=== PATIENT | male | born 1940 | race Caucasian/White ===

== ENCOUNTER 2017-10-23 11:22 | Inpatient (IN) | payer BC, MEDICARE ==
[2017-10-23 12:29] LABS: URINE BILIRUBIN NEGATIVE (NEGATIVE); URINE BLOOD 2+ (NEGATIVE); URINE CLARITY Hazy (Clear); URINE COLOR Yellow (YELLOW); URINE GLUCOSE (UA) 1+ mg/dL (Normal); URINE HYALINE CAST 0-2 /lpf (0-2); URINE LEUKOCYTE ESTERASE 3+ Leu/uL (Negative); URINE NITRATE NEGATIVE (NEGATIVE); URINE PROTEIN 2+ mg/dL (NEGATIVE); URINE UROBILINOGEN NORMAL mg/dL (0.2-1.0)
[2017-10-23 12:34] LABS: URINE BACTERIA MANY (<OCC)
[2017-10-23 13:42] LABS: BASO # 0.1 K/uL (0.0-0.2); BASO % 0.4 % (0.0-2.0); EOS % 0.1 % (0.0-4.0); HEMOGLOBIN 13.6 g/dL (12.0-18.0); LYMPH # 0.7 K/uL (1.0-4.3); LYMPH % 4.7 % (20.0-40.0); MEAN CELL VOLUME 90.3 fL (80.0-94.0); MEAN CORPUSCULAR HEMOGLOBIN 31.2 pg (27.0-31.0); MEAN CORPUSCULAR HGB CONC 34.5 g/dL (33.0-37.0); MEAN PLATELET VOLUME 9.4 fL (7.2-11.7); MONO # 1.8 K/uL (0.0-0.8); MONO % 11.2 % (0.0-10.0); NEUT % 83.6 % (50.0-75.0); PLATELET COUNT 191 K/uL (130-400); RBC 4.38 Mil/uL (4.40-5.90); RED CELL DISTRIBUTION WIDTH 12.7 % (11.5-14.5); WHITE BLOOD COUNT 15.6 K/uL (4.8-10.8)
[2017-10-23 14:15] LABS: ALB/GLOB RATIO 0.8 (1.0-2.1); ALBUMIN 3.6 g/dL (3.5-5.0); CALCIUM 8.1 mg/dl (8.6-10.4); MAGNESIUM 2.1 mg/dL (1.6-2.3)
[2017-10-23] MEDS ORDERED: Lactated Ringer's 1,000 ML IV STA (14:16)
[2017-10-23 14:17] LABS: BANDS 2 % (0-2); LYMPHOCYTE 4 % (20-40); MONOCYTE 11 % (0-10); NEUTROPHIL 83 % (50-75); TOTAL CELLS COUNTED 100
[2017-10-23 14:18] LABS: ANISOCYTOSIS SLIGHT; PLATELET ESTIMATE NORMAL (NORMAL)
[2017-10-23 14:19] LABS: LARGE PLATELETS PRESENT; POLYCHROMIC SLIGHT
[2017-10-23] MEDS ORDERED: cefTRIAXone IV 1 gm in Dextros 50 ML IVPB ONE (14:35)
[2017-10-23] MEDS ORDERED: Sodium Chloride 0.9% 1,000 ML ONE (14:35)
[2017-10-23] MEDS: Sodium Chloride 0.9% 1,000 ML IV SCH ×2 (14:38→22:59)
--- NOTE | 2017-10-23 14:42 | CT ---
PROCEDURE: CT Abdomen and Pelvis without intravenous contrast HISTORY: flank pain with dysuria COMPARISON: None. TECHNIQUE: Axial and reformatted coronal and sagittal CT images of the abdomen and pelvis were obtained without IV or oral contrast administration.. Contrast Dose: 0 Radiation dose: Total exam DLP = 538.00 mGy-cm. This CT exam was performed using one or more of the following dose reduction techniques: Automated exposure control, adjustment of the mA and/or kV according to patient size, and/or use of iterative reconstruction technique. FINDINGS: LOWER THORAX: No evidence of acute pathology. LIVER: Unremarkable. No gross lesion or ductal dilatation. GALLBLADDER AND BILE DUCTS: Unremarkable. PANCREAS: Unremarkable. No gross lesion or ductal dilatation. SPLEEN: Unremarkable. ADRENALS: Unremarkable. No mass. KIDNEYS AND URETERS: There are nonspecific [id number] bilateral perinephric stranding seen slightly more on the left. The possibility of infectious process is not totally excluded. There is no evidence of nephrolithiasis or hydronephrosis. Low-attenuation cyst are noted at both kidneys larger on the left. The left renal cyst measures 4.2 centimeter in the largest transverse diameter. VASCULATURE: Unremarkable. No aortic aneurysm. BOWEL: Unremarkable. No obstruction. No gross mural thickening. Scattered colonic diverticulosis are seen without evidence of diverticulitis. APPENDIX: Unremarkable. Normal appendix. PERITONEUM: Unremarkable. No free fluid. No free air. LYMPH NODES: Unremarkable. No enlarged lymph nodes. BLADDER: There is Ghosh catheter in the bladder. There is moderate to severe diffuse bladder wall thickening. There is 3.2 centimeter diverticulum at the right aspect of the bladder contains fluid and air. REPRODUCTIVE: The prostate it is moderately enlarged. BONES: Advanced degenerative changes at the lower spine are noted PE OTHER FINDINGS: None. IMPRESSION: No evidence of nephrolithiasis or significant hydronephrosis. Ndpv-po-viohotxv nonspecific bilateral perinephric stranding more prominent on the left side. The possibility of pyelonephritis is not totally excluded. Moderate diffuse bladder wall thickening. 3.2 centimeter right posterior bladder diverticulum. Moderately enlarged prostate.
--- NOTE | 2017-10-23 15:52 | C.PDOC ---
History Of Present Illness Patient is a 76 y/o male, with a Hx of prostate enlargement, who presents to the ED with a complaint of painful urination and increased frequency. Patient reports little urine output when urinating. Patient admits to not seeing a PMD in many years; denies fever, nausea/vomiting, or abdominal pain. No other physical complaints at this time. Time Seen by Provider: 10/23/17 12:32 Chief Complaint (Nursing): Male Genitourinary History Per: Patient History/Exam Limitations: no limitations Current Symptoms Are (Timing): Still Present Associated Symptoms: Urinary Symptoms (frequency) Recent travel outside of the [place]: No Past Medical History Reviewed: Historical Data, Nursing Documentation, Vital Signs Vital Signs: Last Vital Signs Temp 98.7 F 10/23/17 17:54 Pulse 106 H 10/23/17 17:20 Resp 20 10/23/17 18:10 BP 153/88 H 10/23/17 17:20 Pulse Ox 96 10/23/17 17:20 - Medical History PMH: No Chronic Diseases Surgical History: No Surg Hx - [facility] Procedures DX ULTRASOUND NEC (01/10/14) Family History: States: No Known Family Hx - Social History Hx Alcohol Use: No Hx Substance Use: No - Immunization History Hx Tetanus Toxoid Vaccination: No Hx Influenza Vaccination: No Hx Pneumococcal Vaccination: No Review Of Systems Constitutional: Negative for: Fever Gastrointestinal: Negative for: Nausea, Vomiting, Abdominal Pain Genitourinary: Positive for: Dysuria, Frequency Physical Exam - Physical Exam Appears: Well, Non-toxic, No Acute Distress Skin: Normal Color, Warm, Dry Head: Atraumatic, Normacephalic Oral Mucosa: Moist Lymphatic: Deferred Chest: Symmetrical Cardiovascular: Rhythm Regular, No Murmur Respiratory: Normal Breath Sounds, No Rales, No Rhonchi, No Wheezing Gastrointestinal/Abdominal: Soft, No Tenderness Neurological/Psych: Oriented x3, Normal Speech, Normal Cognition ED Course And Treatment - Laboratory Results Result Diagrams: 10/23/17 13:36 10/23/17 13:36 O2 Sat by Pulse Oximetry: 97 (room air) Pulse Ox Interpretation: Normal - CT Scan/US A/P Other Rad Studies (CT/US): Interpreted By Me, Read By Radiologist CT/US Interpretation: IMPRESSION: No evidence of nephrolithiasis or significant hydronephrosis. Fuqn-ii-butptkts nonspecific bilateral perinephric stranding more prominent on the left side. The possibility of pyelonephritis is not totally excluded. Moderate diffuse bladder wall thickening. 3.2 centimeter right posterior bladder diverticulum. Moderately enlarged prostate. Progress Note: EKG, urine culture, and blood work ordered. IV fluids administered. - Physician Consult Information Time Consulting Physician Contacted: 14:30 Physician Contacted: Darshana Jeter Outcome Of Conversation: Agrees to admission of patient Disposition - Disposition Disposition: HOSPITALIZED Disposition Time: 14:40 Condition: STABLE - Clinical Impression Clinical Impression: Renal failure, Pyelonephritis - Scribe Statement The provider has reviewed the documentation as recorded by the Scribe Joanie Ang All medical record entries made by the Scribe were at my direction and personally dictated by me. I have reviewed the chart and agree that the record accurately reflects my personal performance of the history, physical exam, medical decision making, and the department course for this patient. I have also personally directed, reviewed, and agree with the discharge instructions and disposition.
--- NOTE | 2017-10-23 18:24 | CP.PCM.HP ---
Past Patient History - Past Medical History & Family History Past Medical History?: Yes - Past Social History Smoking Status: Never Smoked - CARDIAC Hx Cardiac Disorders: No - PULMONARY Hx Respiratory Disorders: No - NEUROLOGICAL Hx Neurological Disorder: No - HEENT Hx HEENT Problems: No - RENAL Hx Chronic Kidney Disease: No - ENDOCRINE/METABOLIC Hx Endocrine Disorders: No - HEMATOLOGICAL/ONCOLOGICAL Hx Blood Disorders: No - INTEGUMENTARY Hx Dermatological Problems: No - MUSCULOSKELETAL/RHEUMATOLOGICAL Hx Falls: No - GASTROINTESTINAL Hx Gastrointestinal Disorders: No - GENITOURINARY/GYNECOLOGICAL Hx Genitourinary Disorders: Yes Other/Comment: "urinary problems" - PSYCHIATRIC Hx Substance Use: No - SURGICAL HISTORY Hx Surgeries: Yes Other/Comment: "urinary biopsy" - ANESTHESIA Hx Anesthesia: Yes Hx Anesthesia Reactions: No Hx Malignant Hyperthermia: No Has any member of the family had a problem w/ anesthesia?: No Meds Allergies/Adverse Reactions: Allergies Allergy/AdvReac Type Severity Reaction Status Date / Time No Known Allergies Allergy Verified 10/23/17 11:30 Results - Vital Signs Recent Vital Signs: Last Vital Signs Temp 98.7 F 10/23/17 17:54 Pulse 106 H 10/23/17 17:20 Resp 20 10/23/17 18:10 BP 153/88 H 10/23/17 17:20 Pulse Ox 96 10/23/17 17:20 - Labs Result Diagrams: 10/23/17 13:36 10/23/17 13:36 Labs: Laboratory Results - last 24 hr 10/23/17 10/23/17 10/23/17 12:02 13:36 13:36 WBC 15.6 H RBC 4.38 L Hgb 13.6 Hct 39.6 MCV 90.3 MCH 31.2 H MCHC 34.5 RDW 12.7 Plt Count 191 MPV 9.4 Neut % (Auto) 83.6 H Lymph % (Auto) 4.7 L [place] % (Auto) 11.2 H Eos % (Auto) 0.1 Baso % (Auto) 0.4 Neut # 13.0 H Lymph # 0.7 L [place] # 1.8 H Eos # 0.0 Baso # 0.1 Neutrophils % (Manual) 83 H Band Neutrophils % 2 Lymphocytes % (Manual) 4 L Monocytes % (Manual) 11 H Platelet Estimate Normal Large Platelets Present Polychromasia Slight Anisocytosis (manual) Slight Sodium 127 L Potassium 4.7 Chloride 93 L Carbon Dioxide 23 Anion Gap 16 BUN 63 H Creatinine 1.8 H Est GFR ( Amer) 45 Est GFR (Non-Af Amer) 37 Random Glucose 234 H Calcium 8.1 L Phosphorus 3.9 Magnesium 2.1 Total Bilirubin 0.9 AST 25 ALT 30 Alkaline Phosphatase 91 Total Protein 8.1 Albumin 3.6 Globulin 4.5 H Albumin/Globulin Ratio 0.8 L Lipase 674 H Urine Color Yellow Urine Clarity Hazy Urine pH 5.0 Ur Specific [place] 1.013 Urine Protein 2+ H Urine Glucose (UA) 1+ H Urine Ketones Trace Urine Blood 2+ H Urine Nitrate Negative Urine Bilirubin Negative Urine Urobilinogen Normal Ur Leukocyte Esterase 3+ H Urine WBC (Auto) 300 H Urine RBC (Auto) 5 H Urine Bacteria Many H Hyaline Casts 0-2
[2017-10-24] MEDS: Piperacill/Tazo 3.375gm in Dex 3.375 GM/50 ML BAG IVPB SCH ×3 (00:21→16:00)
[2017-10-24] MEDS: Sodium Chloride 0.9% 1,000 ML IV SCH ×3 (06:49→22:30)
[2017-10-24] MEDS: Enoxaparin 40 mg Syringe SC SCH (10:57)
[2017-10-24] MEDS: Pantoprazole 40 mg EC Tab PO SCH (10:57)
[2017-10-24] MEDS ORDERED: Multiple Vitamins Tab PO SCH (13:45)
--- NOTE | 2017-10-24 16:54 | CP.PCM.CON ---
History of Present Illness - History of Present Illness History of Present Illness: 76 year old male with PMHx pylonephritis seen at bedside complaining of electrical sensations that shoot from his b/l digits proximally up his leg x 5 years. Patient states that the sensations have come and gone over that time period. He denies a hx of diabetes, exposure to heavy metals or alcohol abuse. He has never sought treatment for the issue. Patient denies any further pedal complaints at this time. He denies N/V/F/C/CP/SOB/posterior calf pain. Meds: Denies All: NKDA PSH: Denies FH: Unremarkable SH: Denies tobacco use, ETOH use, illicit drug use Review of Systems - Review of Systems Review of Systems: ROS as per HPI. All other systems reviewed and found to be negative Past Patient History - Past Medical History & Family History Past Medical History?: Yes - Past Social History Smoking Status: Never Smoked - CARDIAC Hx Cardiac Disorders: No - PULMONARY Hx Respiratory Disorders: No - NEUROLOGICAL Hx Neurological Disorder: No - HEENT Hx HEENT Problems: No - RENAL Hx Chronic Kidney Disease: No - ENDOCRINE/METABOLIC Hx Endocrine Disorders: No - HEMATOLOGICAL/ONCOLOGICAL Hx Blood Disorders: No - INTEGUMENTARY Hx Dermatological Problems: No - MUSCULOSKELETAL/RHEUMATOLOGICAL Hx Falls: No - GASTROINTESTINAL Hx Gastrointestinal Disorders: No - GENITOURINARY/GYNECOLOGICAL Hx Genitourinary Disorders: Yes Other/Comment: "urinary problems" - PSYCHIATRIC Hx Substance Use: No - SURGICAL HISTORY Hx Surgeries: Yes Other/Comment: "urinary biopsy" - ANESTHESIA Hx Anesthesia: Yes Hx Anesthesia Reactions: No Hx Malignant Hyperthermia: No Has any member of the family had a problem w/ anesthesia?: No Meds Allergies/Adverse Reactions: Allergies Allergy/AdvReac Type Severity Reaction Status Date / Time No Known Allergies Allergy Verified 10/23/17 11:30 - Medications Medications: Current Medications Enoxaparin Sodium (Lovenox) 40 mg SC DAILY REPLACED BY [facility] Last Admin: 10/24/17 10:57 Dose: 40 mg Sodium Chloride (Sodium Chloride 0.9%) 1,000 mls @ 125 mls/hr IV .Q8H REPLACED BY [facility] Last Admin: 10/24/17 13:51 Dose: Not Given Piperacillin Sod/Tazobactam Sod (Zosyn 3.375 Gm Iv Premix) 3.375 gm in 50 mls @ 100 mls/hr IVPB Q8H REPLACED BY [facility] Last Admin: 10/24/17 09:00 Dose: 100 mls/hr Pantoprazole Sodium (Protonix Ec Tab) 40 mg PO DAILY REPLACED BY [facility] Last Admin: 10/24/17 10:57 Dose: 40 mg Pneumococcal Polyvalent Vaccine (Pneumovax 23 Vaccine) 0.5 ml IM .ONCE ONE Stop: 10/26/17 10:01 Physical Exam - Constitutional Appears: Well, Non-toxic, No Acute Distress - Extremities Exam Additional comments: LE focused exam: Vasc: DP/PT pulses palpable 2.4 b/l. Skin temperature warm to warm from proximal to distal. CFT < 3 seconds to all digits b/l. No edema noted b/l Neuro: Epicritic and protective sensation grossly intact b/l. Tinnel sign negative b/l Derm: No open lesions, wounds, maceration, xerosis, abnormal pigmentation or abnormal growths noted b/l. Dystrophic hallucal nails noted b/l MSK: When pressure is applied to plantar aspect of all digits patient pulls leg away in pain - Neurological Exam Neurological exam: Alert, Oriented x3 - Psychiatric Exam Psychiatric exam: Normal Affect, Normal Mood Results - Vital Signs Recent Vital Signs: Last Vital Signs Temp 98.6 F 10/24/17 15:00 Pulse 101 H 10/24/17 15:00 Resp 20 10/24/17 15:00 BP 152/91 H 10/24/17 15:00 Pulse Ox 98 10/24/17 15:00 - Labs Result Diagrams: 10/23/17 13:36 10/23/17 13:36 Labs: Laboratory Results - last 24 hr 10/23/17 13:36 Hemoglobin A1c 9.9 H Assessment & Plan - Assessment and Plan (Free Text) Assessment: 76 year old male seen at bedside for possible neuropathic pain to b/l feet Plan: Patient seen and evaluated at bedside Plan discussed with attending Dr. Wagner Afebcarrington, WBC 15.6 Xray b/l feet pending to r/o unforseen underlying osseous pathology HgA1c 9.9, random glucose 234 Sensitivity that patient is feeling in his feet is most likely neuropathic in nature given his uncontrolled glycemic state Will educate patient tomorrow on proper diabetic foot care No medication at this time Patient for f/u with podiatry once he is discharged from hospital Podiatry will continue to follow while patient in house - Date & Time Date: 10/24/17 Time: 17:01
--- NOTE | 2017-10-24 18:33 | CP.PCM.PN ---
Subjective - Date & Time of Evaluation Date of Evaluation: 10/24/17 Time of Evaluation: 09:20 Objective - Vital Signs/Intake and Output Vital Signs (last 24 hours): Temp Pulse Resp BP Pulse Ox 98.6 F 101 H 20 152/91 H 98 10/24/17 15:00 10/24/17 15:00 10/24/17 15:00 10/24/17 15:00 10/24/17 15:00 Intake and Output: 10/24/17 10/24/17 06:59 18:59 Intake Total 2996 400 Output Total 1900 900 Balance 1096 -500 - Medications Medications: Current Medications Enoxaparin Sodium (Lovenox) 40 mg SC DAILY [facility] Last Admin: 10/24/17 10:57 Dose: 40 mg Sodium Chloride (Sodium Chloride 0.9%) 1,000 mls @ 125 mls/hr IV .Q8H [facility] Last Admin: 10/24/17 13:51 Dose: Not Given Piperacillin Sod/Tazobactam Sod (Zosyn 3.375 Gm Iv Premix) 3.375 gm in 50 mls @ 100 mls/hr IVPB Q8H [facility] Last Admin: 10/24/17 16:00 Dose: 100 mls/hr Pantoprazole Sodium (Protonix Ec Tab) 40 mg PO DAILY [facility] Last Admin: 10/24/17 10:57 Dose: 40 mg Pneumococcal Polyvalent Vaccine (Pneumovax 23 Vaccine) 0.5 ml IM .ONCE ONE Stop: 10/26/17 10:01 - Labs Labs: 10/23/17 13:36 10/23/17 13:36
[2017-10-25] MEDS: Piperacill/Tazo 3.375gm in Dex 3.375 GM/50 ML BAG IVPB SCH ×3 (00:20→15:44)
[2017-10-25] MEDS: Sodium Chloride 0.9% 1,000 ML IV SCH ×4 (05:30→23:01)
[2017-10-25] MEDS: Pantoprazole 40 mg EC Tab PO SCH (09:26)
[2017-10-25] MEDS: Enoxaparin 40 mg Syringe SC SCH (09:28)
--- NOTE | 2017-10-25 15:22 | CP.PCM.PN ---
Subjective - Date & Time of Evaluation Date of Evaluation: 10/25/17 Time of Evaluation: 10:45 - Subjective Subjective: clinically same Objective - Vital Signs/Intake and Output Vital Signs (last 24 hours): Temp Pulse Resp BP Pulse Ox 98.8 F 86 20 107/66 96 10/25/17 08:00 10/25/17 08:00 10/25/17 08:00 10/25/17 08:00 10/25/17 08:00 Intake and Output: 10/25/17 10/25/17 06:59 18:59 Intake Total 1640 600 Output Total 2100 1400 Balance -460 -800 - Medications Medications: Current Medications Enoxaparin Sodium (Lovenox) 40 mg SC DAILY [facility] Last Admin: 10/25/17 09:28 Dose: 40 mg Sodium Chloride (Sodium Chloride 0.9%) 1,000 mls @ 125 mls/hr IV .Q8H [facility] Last Admin: 10/25/17 14:29 Dose: 125 mls/hr Piperacillin Sod/Tazobactam Sod (Zosyn 3.375 Gm Iv Premix) 3.375 gm in 50 mls @ 100 mls/hr IVPB Q8H [facility] Last Admin: 10/25/17 08:51 Dose: 100 mls/hr Pantoprazole Sodium (Protonix Ec Tab) 40 mg PO DAILY [facility] Last Admin: 10/25/17 09:26 Dose: 40 mg Pneumococcal Polyvalent Vaccine (Pneumovax 23 Vaccine) 0.5 ml IM .ONCE ONE Stop: 10/26/17 10:01 - Labs Labs: 10/23/17 13:36 10/23/17 13:36 - Constitutional Appears: Well - Head Exam Head Exam: ATRAUMATIC, NORMAL INSPECTION, NORMOCEPHALIC - Eye Exam Eye Exam: EOMI, Normal appearance, PERRL Pupil Exam: NORMAL ACCOMODATION, PERRL - ENT Exam ENT Exam: Mucous Membranes Moist, Normal Exam - Neck Exam Neck Exam: Full ROM, Normal Inspection. absent: Lymphadenopathy - Respiratory Exam Respiratory Exam: Decreased Breath Sounds - Cardiovascular Exam Cardiovascular Exam: REGULAR RHYTHM, +S1, +S2 - GI/Abdominal Exam GI & Abdominal Exam: Soft, Diminished Bowel Sounds - Rectal Exam Rectal Exam: Deferred Assessment and Plan - Assessment and Plan (Free Text) Plan: Since growing E. coli in the urine sensitive to all organisms patient is on currently getting zosyn and patient sensitive report reveals patient is sensitive to cefazolin and cefepime fine and Zosyn all 3 so will continue to give her Zosyn follow-up with the cord closely patient Follow-up with the urologist
--- NOTE | 2017-10-25 15:25 | CP.PCM.PN ---
Subjective - Date & Time of Evaluation Date of Evaluation: 10/25/17 Time of Evaluation: 15:22 - Subjective Subjective: 76 year old male with PMHx pylonephritis seen at bedside complaining of electrical sensations that shoot from his b/l digits proximally up his leg x 5 years. Patient states that the sensitivity in his feet is not bothering him today. Patient is AAO x 3 and NAD resting comfortably in bed. Denies any acute overnight events. Denies any new pedal complaints. Denies N/V/F/C/CP/SOB/ posterior calf pain. Objective - Vital Signs/Intake and Output Vital Signs (last 24 hours): Temp Pulse Resp BP Pulse Ox 98.8 F 86 20 107/66 96 10/25/17 08:00 10/25/17 08:00 10/25/17 08:00 10/25/17 08:00 10/25/17 08:00 Intake and Output: 10/25/17 10/25/17 06:59 18:59 Intake Total 1640 600 Output Total 2100 1400 Balance -460 -800 - Medications Medications: Current Medications Enoxaparin Sodium (Lovenox) 40 mg SC DAILY [facility] Last Admin: 10/25/17 09:28 Dose: 40 mg Sodium Chloride (Sodium Chloride 0.9%) 1,000 mls @ 125 mls/hr IV .Q8H [facility] Last Admin: 10/25/17 14:29 Dose: 125 mls/hr Piperacillin Sod/Tazobactam Sod (Zosyn 3.375 Gm Iv Premix) 3.375 gm in 50 mls @ 100 mls/hr IVPB Q8H [facility] Last Admin: 10/25/17 08:51 Dose: 100 mls/hr Pantoprazole Sodium (Protonix Ec Tab) 40 mg PO DAILY [facility] Last Admin: 10/25/17 09:26 Dose: 40 mg Pneumococcal Polyvalent Vaccine (Pneumovax 23 Vaccine) 0.5 ml IM .ONCE ONE Stop: 10/26/17 10:01 - Labs Labs: 10/23/17 13:36 10/23/17 13:36 - Constitutional Appears: Well, Non-toxic, No Acute Distress - Extremities Exam Additional comments: LE focused exam: Vasc: DP/PT pulses palpable 2.4 b/l. Skin temperature warm to warm from proximal to distal. CFT < 3 seconds to all digits b/l. No edema noted b/l Neuro: Epicritic and protective sensation grossly intact b/l. Tinnel sign negative b/l Derm: No open lesions, wounds, maceration, xerosis, abnormal pigmentation or abnormal growths noted b/l. Dystrophic hallucal nails noted b/l MSK: When pressure is applied to plantar aspect of all digits patient pulls leg away in pain - Neurological Exam Neurological Exam: Alert, Awake, Oriented x3 - Psychiatric Exam Psychiatric exam: Normal Affect, Normal Mood Assessment and Plan - Assessment and Plan (Free Text) Assessment: 76 year old male seen at bedside for possible neuropathic pain to b/l feet Plan: Patient seen and evaluated at bedside Plan discussed with attending Dr. Wagner Afebrile, WBC 15.6 on 10/23/17 Xray b/l feet pending to r/o unforseen underlying osseous pathology; pending HgA1c 9.9, random glucose 234 Sensitivity that patient is feeling in his feet is most likely neuropathic in nature given his uncontrolled glycemic state Patient educated on proper diabetic foot care No medication at this time Patient encouraged to f/u with podiatry once he is discharged from hospital Podiatry will sign off at this time. Please reconsult as needed in the future
[2017-10-26] MEDS: Piperacill/Tazo 3.375gm in Dex 3.375 GM/50 ML BAG IVPB SCH ×3 (00:25→16:03)
[2017-10-26] MEDS: Sodium Chloride 0.9% 1,000 ML IV SCH ×2 (05:40→14:10)
[2017-10-26] MEDS: Pantoprazole 40 mg EC Tab PO SCH (09:53)
[2017-10-26] MEDS: Enoxaparin 40 mg Syringe SC SCH (09:54)
[2017-10-26] MEDS ORDERED: Influenza Vaccine 60 mcg/0.5 mL SYR (4YR UP) IM ONE (10:00)
[2017-10-26] MEDS ORDERED: Pneumococcal 23-Valent Vaccine IM ONE (10:00)
--- NOTE | 2017-10-26 10:42 | CP.PCM.PN ---
Subjective - Date & Time of Evaluation Date of Evaluation: 10/26/17 Time of Evaluation: 08:00 - Subjective Subjective: clinically same Objective - Vital Signs/Intake and Output Vital Signs (last 24 hours): Temp Pulse Resp BP Pulse Ox 98.6 F 93 H 20 123/77 98 10/26/17 08:13 10/26/17 08:13 10/26/17 08:13 10/26/17 08:13 10/26/17 08:13 Intake and Output: 10/26/17 10/26/17 06:59 18:59 Intake Total 2540 Output Total 1975 Balance 565 - Medications Medications: Current Medications Enoxaparin Sodium (Lovenox) 40 mg SC DAILY [facility] Last Admin: 10/26/17 09:54 Dose: 40 mg Sodium Chloride (Sodium Chloride 0.9%) 1,000 mls @ 125 mls/hr IV .Q8H [facility] Last Admin: 10/26/17 05:40 Dose: 125 mls/hr Piperacillin Sod/Tazobactam Sod (Zosyn 3.375 Gm Iv Premix) 3.375 gm in 50 mls @ 100 mls/hr IVPB Q8H [facility] Last Admin: 10/26/17 08:29 Dose: 100 mls/hr Lactobacillus Acidophilus (Bacid Acidophilus) 1 cap PO BID [facility] Pantoprazole Sodium (Protonix Ec Tab) 40 mg PO DAILY [facility] Last Admin: 10/26/17 09:53 Dose: 40 mg - Labs Labs: 10/23/17 13:36 10/23/17 13:36 - Constitutional Appears: Well - Head Exam Head Exam: ATRAUMATIC, NORMAL INSPECTION, NORMOCEPHALIC - Eye Exam Eye Exam: EOMI, Normal appearance, PERRL Pupil Exam: NORMAL ACCOMODATION, PERRL - ENT Exam ENT Exam: Mucous Membranes Moist, Normal Exam - Neck Exam Neck Exam: Full ROM, Normal Inspection. absent: Lymphadenopathy - Respiratory Exam Respiratory Exam: Decreased Breath Sounds - Cardiovascular Exam Cardiovascular Exam: REGULAR RHYTHM, +S1, +S2 - GI/Abdominal Exam GI & Abdominal Exam: Soft, Diminished Bowel Sounds - Rectal Exam Rectal Exam: Deferred
[2017-10-26] MEDS: Lactobacillus Acidophilus 500 MU Cap PO SCH ×2 (11:05→18:03)
--- NOTE | 2017-10-26 12:52 | CARD ---
APPROVED REPORT EKG Measurement Heart [id number] <Conclusion> Sinus tachycardia Inferior infarct, age undetermined Abnormal ECG
--- NOTE | 2017-10-26 16:37 | RAD ---
PROCEDURE: Bilateral Feet Radiographs. HISTORY: Bilateral pain in digits COMPARISON: None available. FINDINGS: BONES: Right Foot: Mild hallux valgus deformity. No acute displaced fracture. Calcaneal enthesophyte. Heel spur. Left Foot: No acute displaced fracture. Calcaneal enthesophyte. Heel spur. JOINTS: Right Foot: No dislocation. Left Foot: No dislocation. SOFT TISSUES: Right Foot: Unremarkable. No evidence of radiopaque foreign body. Left Foot: Unremarkable. No evidence of radiopaque foreign body. OTHER FINDINGS: None. IMPRESSION: Mild right hallux valgus deformity. Degenerative changes. No acute displaced fracture identified bilaterally.
[2017-10-27] MEDS: Piperacill/Tazo 3.375gm in Dex 3.375 GM/50 ML BAG IVPB SCH ×2 (00:40→08:16)
[2017-10-27] MEDS: Pantoprazole 40 mg EC Tab PO SCH (11:00)
[2017-10-27] MEDS: Enoxaparin 40 mg Syringe SC SCH (11:00)
[2017-10-27] MEDS: Lactobacillus Acidophilus 500 MU Cap PO SCH ×2 (11:00→17:49)
--- NOTE | 2017-10-27 13:48 | CP.PCM.PN ---
Subjective - Date & Time of Evaluation Date of Evaluation: 10/27/17 Time of Evaluation: 08:00 - Subjective Subjective: clinically same Objective - Vital Signs/Intake and Output Vital Signs (last 24 hours): Temp Pulse Resp BP Pulse Ox 98.9 F 94 H 20 144/71 96 10/27/17 08:00 10/27/17 08:00 10/27/17 08:00 10/27/17 08:00 10/27/17 08:00 Intake and Output: 10/27/17 10/27/17 06:59 18:59 Intake Total 1750 Output Total 1900 Balance -150 - Medications Medications: Current Medications Enoxaparin Sodium (Lovenox) 40 mg SC DAILY [facility] Last Admin: 10/27/17 11:00 Dose: 40 mg Piperacillin Sod/Tazobactam Sod (Zosyn 3.375 Gm Iv Premix) 3.375 gm in 50 mls @ 100 mls/hr IVPB Q8H [facility] Last Admin: 10/27/17 08:16 Dose: 100 mls/hr Lactobacillus Acidophilus (Bacid Acidophilus) 1 cap PO BID [facility] Last Admin: 10/27/17 11:00 Dose: 1 cap Pantoprazole Sodium (Protonix Ec Tab) 40 mg PO DAILY [facility] Last Admin: 10/27/17 11:00 Dose: 40 mg Tamsulosin HCl (Flomax) 0.4 mg PO DAILY [facility] Last Admin: 10/27/17 12:49 Dose: 0.4 mg - Labs Labs: 10/23/17 13:36 10/23/17 13:36 - Constitutional Appears: Well - Head Exam Head Exam: ATRAUMATIC, NORMAL INSPECTION, NORMOCEPHALIC - Eye Exam Eye Exam: EOMI, Normal appearance, PERRL Pupil Exam: NORMAL ACCOMODATION, PERRL - ENT Exam ENT Exam: Mucous Membranes Moist, Normal Exam - Neck Exam Neck Exam: Full ROM, Normal Inspection. absent: Lymphadenopathy - Respiratory Exam Respiratory Exam: Decreased Breath Sounds - Cardiovascular Exam Cardiovascular Exam: REGULAR RHYTHM, +S1, +S2 - GI/Abdominal Exam GI & Abdominal Exam: Soft, Diminished Bowel Sounds - Rectal Exam Rectal Exam: Deferred
[2017-10-27 14:02] LABS: HEMOGLOBIN 12.9 g/dL (12.0-18.0); MEAN CELL VOLUME 90.8 fL (80.0-94.0); MEAN CORPUSCULAR HEMOGLOBIN 29.9 pg (27.0-31.0); RBC 4.32 Mil/uL (4.40-5.90); RED CELL DISTRIBUTION WIDTH 13.4 % (11.5-14.5); WHITE BLOOD COUNT 19.5 K/uL (4.8-10.8)
[2017-10-27 14:43] LABS: CALCIUM 7.8 mg/dl (8.6-10.4)
--- NOTE | 2017-10-27 15:50 | CP.PCM.PN ---
Subjective - Date & Time of Evaluation Date of Evaluation: 10/27/17 Time of Evaluation: 15:50 - Subjective Subjective: PT SEEN TODAY BY UROLOGY. URINE CX REC'D AND IV ABX ADJUSTED PER THE CX RESULTS. WILL CONTINUE TO F/U WITH PT AND CONSULTS. Objective - Vital Signs/Intake and Output Vital Signs (last 24 hours): Temp Pulse Resp BP Pulse Ox 98.9 F 94 H 20 144/71 96 10/27/17 08:00 10/27/17 08:00 10/27/17 08:00 10/27/17 08:00 10/27/17 08:00 Intake and Output: 10/27/17 10/27/17 06:59 18:59 Intake Total 1750 Output Total 1900 Balance -150 - Medications Medications: Current Medications Enoxaparin Sodium (Lovenox) 40 mg SC DAILY [facility] Last Admin: 10/27/17 11:00 Dose: 40 mg Piperacillin Sod/Tazobactam Sod (Zosyn 3.375 Gm Iv Premix) 3.375 gm in 50 mls @ 100 mls/hr IVPB Q8H [facility] Last Admin: 10/27/17 08:16 Dose: 100 mls/hr Meropenem 500 mg/ Sodium (Chloride) 100 mls @ 100 mls/hr IVPB Q12 [facility] Insulin Aspart (Novolog) 0 unit SC ACHS [facility] PRN Reason: Protocol Lactobacillus Acidophilus (Bacid Acidophilus) 1 cap PO BID [facility] Last Admin: 10/27/17 11:00 Dose: 1 cap Pantoprazole Sodium (Protonix Ec Tab) 40 mg PO DAILY [facility] Last Admin: 10/27/17 11:00 Dose: 40 mg Tamsulosin HCl (Flomax) 0.4 mg PO DAILY [facility] Last Admin: 10/27/17 12:49 Dose: 0.4 mg - Labs Labs: 10/27/17 13:52 10/27/17 13:52
[2017-10-27] MEDS: (Novolog) Insulin Aspart, Recombinant 100 u/ml 10 ml vial SC SCH ×2 (17:25→22:45)
--- NOTE | 2017-10-27 18:28 | CP.PCM.CON ---
History of Present Illness - History of Present Illness History of Present Illness: 76 y/o male, with a Hx of prostate enlargement, who presents to the ED with a complaint of painful urination and increased frequency. Patient reports little urine output when urinating. Patient admits to not seeing a PMD in many years; denies fever, nausea/vomiting, or abdominal pain. found to have increased blood sugar and E Coli UTI - Medical History PMH: No Chronic Diseases Surgical History: No Surg Hx Review of Systems - Review of Systems All systems: reviewed and no additional remarkable complaints except - Constitutional Constitutional: As Per HPI - EENT Eyes: absent: As Per HPI, Blind Spots, Blurred Vision, Change in Vision, Decreased Night Vision, Diplopia, Discharge, Dry Eye, Exophthalmos, Floaters, Irritation, Itchy Eyes, Loss of Peripheral Vision, Pain, Photophobia, Requires Corrective Lenses, Sees Flashes, Spots in Vision, Tunnel Vision, Other Visual Disturbances, Loss of Vision, Other Ears: absent: As Per HPI, Decreased Hearing, Ear Discharge, Ear Pain, Tinnitus, Abnormal Hearing, Disequilibrium, Dizziness, Other Nose/Mouth/Throat: absent: As Per HPI, Epistaxis, Nasal Congestion, Nasal Discharge, Nasal Obstruction, Nasal Trauma, Nose Pain, Post Nasal Drip, Sinus Pain, Sinus Pressure, Bleeding Gums, Change in Voice, Dental Pain, Dry Mouth, Dysphagia, Halitosis, Hoarsness, Lip Swelling, Mouth Lesions, Mouth Pain, Odynophagia, Sore Throat, Throat Swelling, Tongue Swelling, Facial Pain, Neck Pain, Neck Mass, Other - Cardiovascular Cardiovascular: absent: As Per HPI, Acrocyanosis, Chest Pain, Chest Pain at Rest , Chest Pain with Activity, Claudication, Diaphoresis, Dyspnea, Dyspnea on Exertion, Edema, Irregular Heart Rhythm, Pain Radiating to Arm/Neck/Jaw, Leg Edema, Leg Ulcers, Lightheadedness, Orthopnea, Palpitations, Paroxysmal Nocturnal Dyspnea, Pedal Edema, Radiating Pain, Rapid Heart Rate, Slow Heart Rate, Syncope, Other - Respiratory Respiratory: absent: As Per HPI, Cough, Dyspnea, Hemoptysis, Dyspnea on Exertion , Wheezing, Snoring, Stridor, Pain on Inspiration, Chest Congestion, Excessive Mucous Production, Change in Mucous Color, Pain with Coughing, Other - Gastrointestinal Gastrointestinal: absent: As Per HPI, Abdominal Pain, Belching, Bloating, Change in Bowel Habits, Change in Stool Character, Coffee Ground Emesis, Constipation, Cramping, Diarrhea, Dyspepsia, Dysphagia, Early Satiety, Excessive Flatus, Fecal Incontinence, Heartburn, Hematemesis, Hematochezia, Loose Stools, Melena, Nausea, Odynophagia, Temesmus, Vomiting, Other - Genitourinary Genitourinary: As Per HPI - Musculoskeletal Musculoskeletal: absent: As Per HPI, Abnormal Gait, Arthralgias, Atrophy, Back Pain, Deformity, Joint Swelling, Limited Range of Motion, Loss of Height, Muscle Cramps, Muscle Weakness, Myalgias, Neck Pain, Numbness, Radiating Pain into Limb, Stiffness, Tingling, Other - Integumentary Integumentary: absent: As Per HPI, Acne, Alopecia, Bleeding Lesions, Change in Hair, Change in Nails, Change in Pigmentation, Changing Lesions, Dry Skin, Erythema, Furuncle, Hirsutism, Lesions, New Lesions, Non-Healing Lesions, Photosensitivity, Pruritus, Rash, Skin Pain, Skin Ulcer, Sores, Striae, Swelling , Unusual Bruising, Wounds, Jaundice, Other - Neurological Neurological: absent: As Per HPI, Abnormal Gait, Abnormal Hearing, Abnormal Movements, Abnormal Speech, Behavioral Changes, Burning Sensations, Confusion, Convulsions, Disequilibrium, Dizziness, Numbness, Focal Weakness, Frequent Falls , Headaches, Lack of Coordination, Loss of Vision, Memory Loss, Paresthesias, Radicular Pain, Restless Legs, Sensory Deficit, Syncope, Tingling, Tremor, Vertigo, Weakness, Other Visual Disturbances, Other - Psychiatric Psychiatric: absent: As Per HPI, Abnormal Sleep Pattern, Anhedonia, Anxiety, Auditory Hallucinations, Behavioral Changes, Change in Appetite, Change in Libido, Confusion, Depression, Difficulty Concentrating, Hallucinations, Homicidal Ideation, Hopelessness, Irritability, Memory Loss, Mood Swings, Panic Attacks, Paranoia, Suicidal Ideation, Visual Hallucinations, Tactile Hallucinations, Other - Endocrine Endocrine: absent: As Per HPI, Change in Body Appearance, Change in Libido, Cold Intolorance, Deepening of Voice, Excessive Sweating, Fatigue, Flushing, Heat Intolorance, Increase in Ring/Shoe/Hat Size, Palpitations, Polydipsia, Polyphagia, Polyuria, Other - Hematologic/Lymphatic Hematologic: absent: As Per HPI, Easy Bleeding, Easy Bruising, Lymphadenopathy, Other Past Patient History - Past Medical History & Family History Past Medical History?: Yes - Past Social History Smoking Status: Never Smoked - CARDIAC Hx Cardiac Disorders: No - PULMONARY Hx Respiratory Disorders: No - NEUROLOGICAL Hx Neurological Disorder: No - HEENT Hx HEENT Problems: No - RENAL Hx Chronic Kidney Disease: No - ENDOCRINE/METABOLIC Hx Endocrine Disorders: No - HEMATOLOGICAL/ONCOLOGICAL Hx Blood Disorders: No - INTEGUMENTARY Hx Dermatological Problems: No - MUSCULOSKELETAL/RHEUMATOLOGICAL Hx Falls: No - GASTROINTESTINAL Hx Gastrointestinal Disorders: No - GENITOURINARY/GYNECOLOGICAL Hx Genitourinary Disorders: Yes Other/Comment: "urinary problems" - PSYCHIATRIC Hx Substance Use: No - SURGICAL HISTORY Hx Surgeries: Yes Other/Comment: "urinary biopsy" - ANESTHESIA Hx Anesthesia: Yes Hx Anesthesia Reactions: No Hx Malignant Hyperthermia: No Has any member of the family had a problem w/ anesthesia?: No Meds Allergies/Adverse Reactions: Allergies Allergy/AdvReac Type Severity Reaction Status Date / Time No Known Allergies Allergy Verified 10/23/17 11:30 - Medications Medications: Current Medications Enoxaparin Sodium (Lovenox) 40 mg SC DAILY [facility] Last Admin: 10/27/17 11:00 Dose: 40 mg Meropenem 500 mg/ Sodium (Chloride) 100 mls @ 100 mls/hr IVPB Q12 [facility] Insulin Aspart (Novolog) 0 unit SC ACHS [facility] PRN Reason: Protocol Last Admin: 10/27/17 17:25 Dose: 3 unit Lactobacillus Acidophilus (Bacid Acidophilus) 1 cap PO BID [facility] Last Admin: 10/27/17 17:49 Dose: 1 cap Pantoprazole Sodium (Protonix Ec Tab) 40 mg PO DAILY [facility] Last Admin: 10/27/17 11:00 Dose: 40 mg Tamsulosin HCl (Flomax) 0.4 mg PO DAILY [facility] Last Admin: 10/27/17 12:49 Dose: 0.4 mg Physical Exam - Constitutional Appears: Non-toxic, Chronically Ill - Head Exam Head Exam: NORMOCEPHALIC - Eye Exam Eye Exam: PERRL. absent: Scleral icterus - ENT Exam ENT Exam: Mucous Membranes Dry - Neck Exam Neck exam: Negative for: Lymphadenopathy - Respiratory Exam Respiratory Exam: Decreased Breath Sounds - Cardiovascular Exam Cardiovascular Exam: REGULAR RHYTHM - GI/Abdominal Exam GI & Abdominal Exam: Diminished Bowel Sounds, Soft. absent: Tenderness - Rectal Exam Rectal Exam: Deferred - Exam Exam: NORMAL INSPECTION - Extremities Exam Extremities exam: Positive for: pedal pulses present. Negative for: calf tenderness, pedal edema, tenderness - Back Exam Back exam: absent: CVA tenderness (L), CVA tenderness (R) - Neurological Exam Neurological exam: CN II-XII Intact - Psychiatric Exam Psychiatric exam: Depressed - Skin Skin Exam: Dry Results - Vital Signs Recent Vital Signs: Last Vital Signs Temp 99.1 F 10/27/17 15:15 Pulse 94 H 10/27/17 15:36 Resp 20 10/27/17 15:15 BP 144/71 10/27/17 15:36 Pulse Ox 96 10/27/17 15:36 - Labs Result Diagrams: 10/27/17 13:52 10/27/17 13:52 Labs: Laboratory Results - last 24 hr 10/27/17 10/27/17 13:52 13:52 WBC 19.5 H RBC 4.32 L Hgb 12.9 Hct 39.2 MCV 90.8 MCH 29.9 MCHC 33.0 RDW 13.4 Plt Count 370 D MPV 9.0 Sodium 130 L Potassium 4.0 Chloride 101 Carbon Dioxide 21 L Anion Gap 12 BUN 27 H Creatinine 1.7 H Est GFR ( Amer) 48 Est GFR (Non-Af Amer) 39 Random Glucose 237 H Calcium 7.8 L Assessment & Plan (1) Pyelonephritis Status: Acute (2) Renal failure Status: Acute - Assessment and Plan (Free Text) Assessment: obstructive uropathy pyelo hyperglycemia BPH HTN cont iv then po antibiotics
[2017-10-27] MEDS: Meropenem 500 MG in Sodium Chloride 0.9% 100 ML IVPB SCH (21:15)
--- NOTE | 2017-10-27 22:38 | CP.PCM.CON ---
History of Present Illness - History of Present Illness History of Present Illness: cc: retention, abd pain Past Patient History - Past Medical History & Family History Past Medical History?: Yes - Past Social History Smoking Status: Never Smoked - CARDIAC Hx Cardiac Disorders: No - PULMONARY Hx Respiratory Disorders: No - NEUROLOGICAL Hx Neurological Disorder: No - HEENT Hx HEENT Problems: No - RENAL Hx Chronic Kidney Disease: No - ENDOCRINE/METABOLIC Hx Endocrine Disorders: No - HEMATOLOGICAL/ONCOLOGICAL Hx Blood Disorders: No - INTEGUMENTARY Hx Dermatological Problems: No - MUSCULOSKELETAL/RHEUMATOLOGICAL Hx Falls: No - GASTROINTESTINAL Hx Gastrointestinal Disorders: No - GENITOURINARY/GYNECOLOGICAL Hx Genitourinary Disorders: Yes Other/Comment: "urinary problems" - PSYCHIATRIC Hx Substance Use: No - SURGICAL HISTORY Hx Surgeries: Yes Other/Comment: "urinary biopsy" - ANESTHESIA Hx Anesthesia: Yes Hx Anesthesia Reactions: No Hx Malignant Hyperthermia: No Has any member of the family had a problem w/ anesthesia?: No Meds Allergies/Adverse Reactions: Allergies Allergy/AdvReac Type Severity Reaction Status Date / Time No Known Allergies Allergy Verified 10/23/17 11:30 - Medications Medications: Current Medications Enoxaparin Sodium (Lovenox) 40 mg SC DAILY [facility] Last Admin: 10/27/17 11:00 Dose: 40 mg Meropenem 500 mg/ Sodium (Chloride) 100 mls @ 100 mls/hr IVPB Q12 [facility] Last Admin: 10/27/17 21:15 Dose: 100 mls/hr Insulin Aspart (Novolog) 0 unit SC ACHS [facility] PRN Reason: Protocol Last Admin: 10/27/17 17:25 Dose: 3 unit Lactobacillus Acidophilus (Bacid Acidophilus) 1 cap PO BID [facility] Last Admin: 10/27/17 17:49 Dose: 1 cap Pantoprazole Sodium (Protonix Ec Tab) 40 mg PO DAILY [facility] Last Admin: 10/27/17 11:00 Dose: 40 mg Tamsulosin HCl (Flomax) 0.4 mg PO DAILY [facility] Last Admin: 10/27/17 12:49 Dose: 0.4 mg Results - Vital Signs Recent Vital Signs: Last Vital Signs Temp 99.1 F 10/27/17 15:15 Pulse 94 H 10/27/17 15:36 Resp 20 10/27/17 15:15 BP 144/71 10/27/17 15:36 Pulse Ox 96 10/27/17 15:36 - Labs Result Diagrams: 10/27/17 13:52 10/27/17 13:52 Labs: Laboratory Results - last 24 hr 10/27/17 10/27/17 13:52 13:52 WBC 19.5 H RBC 4.32 L Hgb 12.9 Hct 39.2 MCV 90.8 MCH 29.9 MCHC 33.0 RDW 13.4 Plt Count 370 D MPV 9.0 Sodium 130 L Potassium 4.0 Chloride 101 Carbon Dioxide 21 L Anion Gap 12 BUN 27 H Creatinine 1.7 H Est GFR ( Amer) 48 Est GFR (Non-Af Amer) 39 Random Glucose 237 H Calcium 7.8 L Assessment & Plan - Assessment and Plan (Free Text) Assessment: IMP: URINARY RETENTION SCROTAL MASS, PROB EPIDIDYMITIS ENLARGED PROSTATE UTI FULL REPORT T/F - Date & Time Date: 10/27/17 Time: 13:15
[2017-10-27 22:53] LABS: URINE BACTERIA RARE (<OCC); URINE BILIRUBIN NEGATIVE (NEGATIVE); URINE BLOOD 2+ (NEGATIVE); URINE CLARITY Clear (Clear); URINE COLOR Yellow (YELLOW); URINE GLUCOSE (UA) 2+ mg/dL (Normal); URINE LEUKOCYTE ESTERASE 2+ Leu/uL (Negative); URINE NITRATE NEGATIVE (NEGATIVE); URINE PROTEIN 2+ mg/dL (NEGATIVE); URINE UROBILINOGEN NORMAL mg/dL (0.2-1.0)
[2017-10-28 07:07] LABS: HEMOGLOBIN 11.8 g/dL (12.0-18.0); MEAN CELL VOLUME 89.5 fL (80.0-94.0); MEAN CORPUSCULAR HEMOGLOBIN 30.3 pg (27.0-31.0); MEAN CORPUSCULAR HGB CONC 33.8 g/dL (33.0-37.0); MEAN PLATELET VOLUME 8.9 fL (7.2-11.7); RBC 3.89 Mil/uL (4.40-5.90); RED CELL DISTRIBUTION WIDTH 13.2 % (11.5-14.5); WHITE BLOOD COUNT 17.8 K/uL (4.8-10.8)
[2017-10-28] MEDS: (Novolog) Insulin Aspart, Recombinant 100 u/ml 10 ml vial SC SCH ×4 (08:07→22:16)
[2017-10-28] MEDS: Lactobacillus Acidophilus 500 MU Cap PO SCH ×2 (10:44→18:02)
[2017-10-28] MEDS: Pantoprazole 40 mg EC Tab PO SCH (10:44)
[2017-10-28] MEDS: Enoxaparin 40 mg Syringe SC SCH (10:44)
[2017-10-28] MEDS: Meropenem 500 MG in Sodium Chloride 0.9% 100 ML IVPB SCH ×2 (11:00→22:17)
--- NOTE | 2017-10-28 19:10 | CP.PCM.PN ---
Subjective - Date & Time of Evaluation Date of Evaluation: 10/28/17 Time of Evaluation: 07:20 - Subjective Subjective: clinically same Objective - Vital Signs/Intake and Output Vital Signs (last 24 hours): Temp Pulse Resp BP Pulse Ox 97.4 F L 103 H 20 129/72 99 10/28/17 15:15 10/28/17 15:15 10/28/17 15:15 10/28/17 15:15 10/28/17 15:15 Intake and Output: 10/28/17 10/29/17 18:59 06:59 Intake Total 460 Output Total 1000 Balance -540 - Medications Medications: Current Medications Enoxaparin Sodium (Lovenox) 40 mg SC DAILY [facility] Last Admin: 10/28/17 10:44 Dose: 40 mg Meropenem 500 mg/ Sodium (Chloride) 100 mls @ 100 mls/hr IVPB Q12 [facility] Last Admin: 10/28/17 11:00 Dose: 100 mls/hr Insulin Aspart (Novolog) 0 unit SC ACHS [facility] PRN Reason: Protocol Last Admin: 10/28/17 16:30 Dose: 1 unit Lactobacillus Acidophilus (Bacid Acidophilus) 1 cap PO BID [facility] Last Admin: 10/28/17 18:02 Dose: 1 cap Pantoprazole Sodium (Protonix Ec Tab) 40 mg PO DAILY [facility] Last Admin: 10/28/17 10:44 Dose: 40 mg Tamsulosin HCl (Flomax) 0.4 mg PO DAILY [facility] Last Admin: 10/28/17 10:44 Dose: 0.4 mg - Labs Labs: 10/28/17 07:00 10/28/17 07:00
--- NOTE | 2017-10-29 00:13 | CON ---
DATE: 10/27/2017 UROLOGY CONSULTATION UROLOGY CONSULTATION REQUESTED BY: Dr. Alma Rosa Jeter. UROLOGY CONSULTATION FILLED BY: Dr. Shruti Sterling. REASON FOR CONSULTATION: Urinary tract infection. Urinary retention. HISTORY OF PRESENT ILLNESS: Patient is a 76-year-old male. Patient is, otherwise, in good health. Patient presents with difficulty voiding. He had poor urinary stream. He had a Ghosh catheter inserted. He was subsequently found to have urinary retention. Patient is now admitted for evaluation and therapy. Patient also had lower abdominal discomfort. Poor urinary stream. Patient reports no hematuria. No history of previous urinary tract infection. Patient previously urinated with slow urinary stream. He had occasional abdominal pain. Occasional back pain. Patient reports he is feeling better since hospitalization. Patient is currently treated with antibiotics. Patient reports no history of previous urinary tract infection. Patient previously had slow stream. He had nocturia. There is no history of incontinence. Patient is uncertain regarding fever. Patient is currently being treated for urinary tract infection. There is no family history of prostate carcinoma. Patient has no history of urolithiasis. No nausea or vomiting. Patient reports good appetite. No weight loss. Normal bowel movements. Patient lives with his . He is retired. Patient was born in [place]. Patient does not smoke. PHYSICAL EXAMINATION: GENERAL: Patient is a well-developed, well-nourished male, appearing his stated age. ABDOMEN: Soft, nontender, nondistended. No mass or organomegaly. BACK: No CVA tenderness. GENITALIA: Without acute inflammation. The scrotal contents are as follows. The testes is normal. Below the left testicle is a nodular, indurated mass, approximately 2 cm in size. The mass appears to be continuous with the epididymis. RECTAL EXAMINATION: Normal sphincter tone. No abnormal mass or tenderness. Prostate is enlarged, approximately 40 to 50 g in size. There is moderate induration of the prostate. There was no fluctuance. There was no prostatic tenderness. The urine is clear via the Ghosh catheter. IMPRESSION: Urinary retention. Enlarged prostate. Prostate nodularity. Urinary tract infection. RECOMMENDATIONS AND PLAN: Serum PSA. Urine culture. Continue antibiotic therapy. Further therapy to follow according to patient's clinical course. Possible trial of voiding. I would recommend obtaining scrotal ultrasound. Further therapy to follow according to patient's clinical course. Thank you for recommending patient for urology consultation. [place] MD Hallie cc: Alma Rosa Jeter MD
[2017-10-29 07:17] LABS: BASO # 0.1 K/uL (0.0-0.2); BASO % 0.7 % (0.0-2.0); EOS # 0.4 K/uL (0.0-0.7); EOS % 2.3 % (0.0-4.0); LYMPH # 1.9 K/uL (1.0-4.3); LYMPH % 11.6 % (20.0-40.0); MEAN CELL VOLUME 90.5 fL (80.0-94.0); MEAN CORPUSCULAR HEMOGLOBIN 30.6 pg (27.0-31.0); MEAN CORPUSCULAR HGB CONC 33.9 g/dL (33.0-37.0); MEAN PLATELET VOLUME 8.6 fL (7.2-11.7); MONO % 5.8 % (0.0-10.0); NEUT % 79.6 % (50.0-75.0); NRBC % 0.1 % (0.0-2.0); RBC 3.92 Mil/uL (4.40-5.90); RED CELL DISTRIBUTION WIDTH 13.2 % (11.5-14.5); WHITE BLOOD COUNT 16.4 K/uL (4.8-10.8)
[2017-10-29] MEDS: (Novolog) Insulin Aspart, Recombinant 100 u/ml 10 ml vial SC SCH ×4 (08:10→21:23)
[2017-10-29 08:26] LABS: CALCIUM 7.9 mg/dl (8.6-10.4)
--- NOTE | 2017-10-29 09:37 | US ---
HISTORY: eval for scrotal mass per urology TECHNIQUE: Realtime sonography through the scrotum with color and doppler flow. COMPARISON: None Available. FINDINGS: RIGHT TESTICLE: Measures 3.9 x 2.1 x 3.0 cm. Normal echotexture and flow. RIGHT EPIDIDYMIS: Normal size and morphology LEFT TESTICLE: Measures 3.8 x 2.3 x 2.9 cm. Normal echotexture and flow. LEFT EPIDIDYMIS: Focal enlargement of the epididymal tail with hypervascularity consistent with focal epididymitis. The epididymal head is unremarkable. There is no epididymal mass. HYDROCELE: Trace bilateral hydrocele. VARICOCELE: None. OTHER FINDINGS: None. IMPRESSION: Focal epididymitis involving the left epididymal tail. Trace bilateral hydrocele. No testicular mass identified.
[2017-10-29] MEDS: Meropenem 500 MG in Sodium Chloride 0.9% 100 ML IVPB SCH ×2 (11:00→21:28)
[2017-10-29] MEDS: Pantoprazole 40 mg EC Tab PO SCH (11:00)
[2017-10-29] MEDS: Lactobacillus Acidophilus 500 MU Cap PO SCH ×2 (11:00→17:14)
[2017-10-29] MEDS: Enoxaparin 40 mg Syringe SC SCH (11:00)
--- NOTE | 2017-10-29 13:31 | CP.PCM.PN ---
Subjective - Date & Time of Evaluation Date of Evaluation: 10/29/17 Time of Evaluation: 10:11 - Subjective Subjective: PGY 2 Medicine Progress Note- Dr. Tram Jeter's service Patient seen and examined resting comfortably in bed. Patient states that he was able to tolerate a diet this morning; although the past couple of days he has not had much of an appetite. He denies current dysuria, urinary frequency, chest pain, headaches, palpitations at this time. Objective - Vital Signs/Intake and Output Vital Signs (last 24 hours): Temp Pulse Resp BP Pulse Ox 98.0 F 80 20 133/80 98 10/29/17 08:00 10/29/17 08:00 10/29/17 08:00 10/29/17 08:00 10/29/17 08:00 Intake and Output: 10/29/17 10/29/17 06:59 18:59 Intake Total 640 Output Total 1700 Balance -1060 - Medications Medications: Current Medications Enoxaparin Sodium (Lovenox) 40 mg SC DAILY [facility] Last Admin: 10/29/17 11:00 Dose: 40 mg Meropenem 500 mg/ Sodium (Chloride) 100 mls @ 100 mls/hr IVPB Q12 [facility] Last Admin: 10/29/17 11:00 Dose: 100 mls/hr Insulin Aspart (Novolog) 0 unit SC ACHS [facility] PRN Reason: Protocol Last Admin: 10/29/17 12:30 Dose: 2 unit Lactobacillus Acidophilus (Bacid Acidophilus) 1 cap PO BID [facility] Last Admin: 10/29/17 11:00 Dose: 1 cap Pantoprazole Sodium (Protonix Ec Tab) 40 mg PO DAILY [facility] Last Admin: 10/29/17 11:00 Dose: 40 mg Tamsulosin HCl (Flomax) 0.4 mg PO DAILY [facility] Last Admin: 10/29/17 11:00 Dose: 0.4 mg - Labs Labs: 10/29/17 06:15 10/29/17 06:15 - Constitutional Appears: Non-toxic, No Acute Distress - Head Exam Head Exam: ATRAUMATIC, NORMAL INSPECTION - Eye Exam Eye Exam: EOMI, Normal appearance Pupil Exam: NORMAL ACCOMODATION - ENT Exam ENT Exam: Mucous Membranes Moist - Neck Exam Neck Exam: Full ROM - Respiratory Exam Respiratory Exam: NORMAL BREATHING PATTERN. absent: Wheezes - Cardiovascular Exam Cardiovascular Exam: +S1, +S2 - GI/Abdominal Exam GI & Abdominal Exam: Soft, Normal Bowel Sounds - Extremities Exam Extremities Exam: Full ROM, Normal Capillary Refill - Back Exam Back Exam: NORMAL INSPECTION - Neurological Exam Neurological Exam: Alert, Awake, Oriented x3 - Psychiatric Exam Psychiatric exam: Normal Affect, Normal Mood - Skin Skin Exam: Normal Color, Warm Assessment and Plan (1) Obstructive uropathy Assessment & Plan: Hx of BPH Initial suspected UTI based on Positive UA findings. Patient has been on Meropenem. Initial UC positive but current UC now negative. Patient to have cystoscopy scheduled for Tuesday, November 01, 2016 F/U Urology recommendations Status: Acute (2) BPH (benign prostatic hyperplasia) Assessment & Plan: F/U Urology recommendations Status: Acute (3) Diabetes mellitus Assessment & Plan: Continue ISS A1c 9.9 Cont to monitor Status: Chronic (4) HTN (hypertension) Assessment & Plan: Normotensive Continue to monitor Status: Chronic (5) Neuropathic pain of both feet Assessment & Plan: Start Gabapentin 100 mg PO TID Status: Acute (6) Prophylactic measure Assessment & Plan: Lovenox and PPI Patient will need home care nursing and physical therapy services. Following in-patient workup, patient to follow up in Tram Jeter's office outpatient. Discussed with attending. All management and planning per Dr. Jeter Status: Acute
[2017-10-29 15:26] LABS: TOTAL PSA 16.8 ng/mL (< or = 4.0)
--- NOTE | 2017-10-29 15:42 | CP.PCM.PN ---
Subjective - Date & Time of Evaluation Date of Evaluation: 10/29/17 Time of Evaluation: 07:20 - Subjective Subjective: clinically same Objective - Vital Signs/Intake and Output Vital Signs (last 24 hours): Temp Pulse Resp BP Pulse Ox 98.0 F 99 H 20 133/80 100 10/29/17 08:00 10/29/17 14:45 10/29/17 08:00 10/29/17 08:00 10/29/17 14:45 Intake and Output: 10/29/17 10/29/17 06:59 18:59 Intake Total 640 Output Total 1700 Balance -1060 - Medications Medications: Current Medications Enoxaparin Sodium (Lovenox) 40 mg SC DAILY [facility] Last Admin: 10/29/17 11:00 Dose: 40 mg Gabapentin (Neurontin) 100 mg PO TID [facility] Last Admin: 10/29/17 14:18 Dose: 100 mg Meropenem 500 mg/ Sodium (Chloride) 100 mls @ 100 mls/hr IVPB Q12 [facility] Last Admin: 10/29/17 11:00 Dose: 100 mls/hr Insulin Aspart (Novolog) 0 unit SC ACHS [facility] PRN Reason: Protocol Last Admin: 10/29/17 12:30 Dose: 2 unit Lactobacillus Acidophilus (Bacid Acidophilus) 1 cap PO BID [facility] Last Admin: 10/29/17 11:00 Dose: 1 cap Pantoprazole Sodium (Protonix Ec Tab) 40 mg PO DAILY [facility] Last Admin: 10/29/17 11:00 Dose: 40 mg Tamsulosin HCl (Flomax) 0.4 mg PO DAILY [facility] Last Admin: 10/29/17 11:00 Dose: 0.4 mg - Labs Labs: 10/29/17 06:15 10/29/17 06:15
--- NOTE | 2017-10-29 18:15 | CP.PCM.PN ---
Subjective - Date & Time of Evaluation Date of Evaluation: 10/29/17 Time of Evaluation: 07:00 - Subjective Subjective: improving on iv rx pyelo cont rx 10-14 days gu follow up Objective - Vital Signs/Intake and Output Vital Signs (last 24 hours): Temp Pulse Resp BP Pulse Ox 98.8 F 90 20 150/84 99 10/29/17 15:00 10/29/17 15:00 10/29/17 15:00 10/29/17 15:00 10/29/17 15:00 Intake and Output: 10/29/17 10/29/17 06:59 18:59 Intake Total 640 580 Output Total 1700 1000 Balance -1060 -420 - Medications Medications: Current Medications Enoxaparin Sodium (Lovenox) 40 mg SC DAILY [facility] Last Admin: 10/29/17 11:00 Dose: 40 mg Gabapentin (Neurontin) 100 mg PO TID [facility] Last Admin: 10/29/17 17:14 Dose: 100 mg Meropenem 500 mg/ Sodium (Chloride) 100 mls @ 100 mls/hr IVPB Q12 [facility] Last Admin: 10/29/17 11:00 Dose: 100 mls/hr Insulin Aspart (Novolog) 0 unit SC ACHS [facility] PRN Reason: Protocol Last Admin: 10/29/17 17:01 Dose: Not Given Lactobacillus Acidophilus (Bacid Acidophilus) 1 cap PO BID [facility] Last Admin: 10/29/17 17:14 Dose: 1 cap Pantoprazole Sodium (Protonix Ec Tab) 40 mg PO DAILY [facility] Last Admin: 10/29/17 11:00 Dose: 40 mg Tamsulosin HCl (Flomax) 0.4 mg PO DAILY [facility] Last Admin: 10/29/17 11:00 Dose: 0.4 mg - Labs Labs: 10/29/17 06:15 10/29/17 06:15 - Constitutional Appears: Non-toxic, Chronically Ill - Head Exam Head Exam: NORMOCEPHALIC - Eye Exam Eye Exam: absent: Scleral icterus - ENT Exam ENT Exam: Mucous Membranes Dry - Neck Exam Neck Exam: absent: Lymphadenopathy - Respiratory Exam Respiratory Exam: Decreased Breath Sounds - Cardiovascular Exam Cardiovascular Exam: REGULAR RHYTHM - GI/Abdominal Exam GI & Abdominal Exam: Distended, Soft - Rectal Exam Rectal Exam: Deferred - Exam Exam: NORMAL INSPECTION - Extremities Exam Extremities Exam: absent: Pedal Edema - Back Exam Back Exam: absent: CVA tenderness (L), CVA tenderness (R) - Neurological Exam Neurological Exam: Alert, Awake, Oriented x3 - Psychiatric Exam Psychiatric exam: Normal Mood - Skin Skin Exam: Dry Assessment and Plan (1) Pyelonephritis Status: Acute (2) Renal failure Status: Acute
[2017-10-30 07:19] LABS: BASO # 0.1 K/uL (0.0-0.2); BASO % 0.9 % (0.0-2.0); EOS # 0.4 K/uL (0.0-0.7); EOS % 2.8 % (0.0-4.0); HEMOGLOBIN 11.8 g/dL (12.0-18.0); LYMPH # 1.8 K/uL (1.0-4.3); LYMPH % 11.8 % (20.0-40.0); MEAN CELL VOLUME 89.8 fL (80.0-94.0); MEAN CORPUSCULAR HEMOGLOBIN 31.3 pg (27.0-31.0); MEAN CORPUSCULAR HGB CONC 34.8 g/dL (33.0-37.0); MEAN PLATELET VOLUME 8.4 fL (7.2-11.7); MONO % 6.4 % (0.0-10.0); NEUT # 11.9 K/uL (1.8-7.0); NEUT % 78.1 % (50.0-75.0); RBC 3.77 Mil/uL (4.40-5.90); RED CELL DISTRIBUTION WIDTH 13.2 % (11.5-14.5); WHITE BLOOD COUNT 15.2 K/uL (4.8-10.8)
[2017-10-30 07:51] LABS: ALB/GLOB RATIO 0.8 (1.0-2.1); CALCIUM 8.1 mg/dl (8.6-10.4); MAGNESIUM 1.7 mg/dL (1.6-2.3)
[2017-10-30] MEDS: (Novolog) Insulin Aspart, Recombinant 100 u/ml 10 ml vial SC SCH ×4 (08:25→22:02)
[2017-10-30] MEDS: Enoxaparin 40 mg Syringe SC SCH (10:39)
[2017-10-30] MEDS: Meropenem 500 MG in Sodium Chloride 0.9% 100 ML IVPB SCH ×2 (10:39→22:06)
[2017-10-30] MEDS: Pantoprazole 40 mg EC Tab PO SCH (10:39)
[2017-10-30] MEDS: Lactobacillus Acidophilus 500 MU Cap PO SCH ×2 (10:39→18:01)
--- NOTE | 2017-10-30 15:34 | CP.PCM.PN ---
Subjective - Date & Time of Evaluation Date of Evaluation: 10/30/17 Time of Evaluation: 07:20 - Subjective Subjective: clinically same Objective - Vital Signs/Intake and Output Vital Signs (last 24 hours): Temp Pulse Resp BP Pulse Ox 98.2 F 92 H 20 139/80 96 10/30/17 09:00 10/30/17 09:00 10/30/17 09:00 10/30/17 09:00 10/30/17 09:00 Intake and Output: 10/30/17 10/30/17 06:59 18:59 Intake Total 460 600 Output Total 400 Balance 60 600 - Medications Medications: Current Medications Enoxaparin Sodium (Lovenox) 40 mg SC DAILY [facility] Last Admin: 10/30/17 10:39 Dose: 40 mg Gabapentin (Neurontin) 100 mg PO TID [facility] Last Admin: 10/30/17 13:46 Dose: 100 mg Meropenem 500 mg/ Sodium (Chloride) 100 mls @ 100 mls/hr IVPB Q12 [facility] Last Admin: 10/30/17 10:39 Dose: 100 mls/hr Insulin Aspart (Novolog) 0 unit SC ACHS [facility] PRN Reason: Protocol Last Admin: 10/30/17 12:30 Dose: 2 unit Lactobacillus Acidophilus (Bacid Acidophilus) 1 cap PO BID [facility] Last Admin: 10/30/17 10:39 Dose: 1 cap Pantoprazole Sodium (Protonix Ec Tab) 40 mg PO DAILY [facility] Last Admin: 10/30/17 10:39 Dose: 40 mg Tamsulosin HCl (Flomax) 0.4 mg PO DAILY [facility] Last Admin: 10/30/17 10:39 Dose: 0.4 mg - Labs Labs: 10/30/17 07:13 10/30/17 07:13
[2017-10-31] MEDS: (Novolog) Insulin Aspart, Recombinant 100 u/ml 10 ml vial SC SCH ×4 (08:20→21:54)
[2017-10-31] MEDS: Lactobacillus Acidophilus 500 MU Cap PO SCH ×2 (10:51→17:27)
[2017-10-31] MEDS: Pantoprazole 40 mg EC Tab PO SCH (10:51)
[2017-10-31] MEDS: Meropenem 500 MG in Sodium Chloride 0.9% 100 ML IVPB SCH ×2 (10:52→21:54)
[2017-10-31] MEDS: Enoxaparin 40 mg Syringe SC SCH (10:52)
--- NOTE | 2017-10-31 17:49 | CP.PCM.PN ---
Subjective - Date & Time of Evaluation Date of Evaluation: 10/31/17 Time of Evaluation: 07:00 - Subjective Subjective: improving on iv rx for pyelo will need eval cont rx for 14 days Objective - Vital Signs/Intake and Output Vital Signs (last 24 hours): Temp Pulse Resp BP Pulse Ox 98.8 F 107 H 20 153/82 H 99 10/31/17 15:15 10/31/17 15:15 10/31/17 15:15 10/31/17 15:15 10/31/17 15:15 Intake and Output: 10/31/17 10/31/17 06:59 18:59 Intake Total 740 600 Output Total 600 Balance 140 600 - Medications Medications: Current Medications Gabapentin (Neurontin) 100 mg PO TID [facility] Last Admin: 10/31/17 17:28 Dose: 100 mg Meropenem 500 mg/ Sodium (Chloride) 100 mls @ 100 mls/hr IVPB Q12 [facility] Last Admin: 10/31/17 10:52 Dose: 100 mls/hr Insulin Aspart (Novolog) 0 unit SC ACHS [facility] PRN Reason: Protocol Last Admin: 10/31/17 16:30 Dose: 2 unit Lactobacillus Acidophilus (Bacid Acidophilus) 1 cap PO BID [facility] Last Admin: 10/31/17 17:27 Dose: 1 cap Pantoprazole Sodium (Protonix Ec Tab) 40 mg PO DAILY [facility] Last Admin: 10/31/17 10:51 Dose: 40 mg Tamsulosin HCl (Flomax) 0.4 mg PO DAILY [facility] Last Admin: 10/31/17 10:51 Dose: 0.4 mg - Labs Labs: 10/30/17 07:13 10/30/17 07:13 - Constitutional Appears: Non-toxic, Chronically Ill - Head Exam Head Exam: NORMOCEPHALIC - Eye Exam Eye Exam: Normal appearance Pupil Exam: NORMAL ACCOMODATION - ENT Exam ENT Exam: Mucous Membranes Dry - Neck Exam Neck Exam: absent: Lymphadenopathy - Respiratory Exam Respiratory Exam: Decreased Breath Sounds - Cardiovascular Exam Cardiovascular Exam: REGULAR RHYTHM - GI/Abdominal Exam GI & Abdominal Exam: Distended, Soft Assessment and Plan (1) Pyelonephritis Status: Acute (2) Renal failure Status: Acute
--- NOTE | 2017-10-31 20:13 | CP.PCM.PN ---
Subjective - Date & Time of Evaluation Date of Evaluation: 10/31/17 Time of Evaluation: 07:20 - Subjective Subjective: clinically same Objective - Vital Signs/Intake and Output Vital Signs (last 24 hours): Temp Pulse Resp BP Pulse Ox 98.8 F 107 H 20 153/82 H 99 10/31/17 15:15 10/31/17 15:15 10/31/17 15:15 10/31/17 15:15 10/31/17 15:15 Intake and Output: 10/31/17 11/01/17 18:59 06:59 Intake Total 600 Balance 600 - Medications Medications: Current Medications Gabapentin (Neurontin) 100 mg PO TID [facility] Last Admin: 10/31/17 17:28 Dose: 100 mg Meropenem 500 mg/ Sodium (Chloride) 100 mls @ 100 mls/hr IVPB Q12 [facility] Last Admin: 10/31/17 10:52 Dose: 100 mls/hr Insulin Aspart (Novolog) 0 unit SC ACHS [facility] PRN Reason: Protocol Last Admin: 10/31/17 16:30 Dose: 2 unit Lactobacillus Acidophilus (Bacid Acidophilus) 1 cap PO BID [facility] Last Admin: 10/31/17 17:27 Dose: 1 cap Pantoprazole Sodium (Protonix Ec Tab) 40 mg PO DAILY [facility] Last Admin: 10/31/17 10:51 Dose: 40 mg Tamsulosin HCl (Flomax) 0.4 mg PO DAILY [facility] Last Admin: 10/31/17 10:51 Dose: 0.4 mg - Labs Labs: 10/30/17 07:13 10/30/17 07:13
[2017-11-01 08:00] LABS: BASO # 0.1 K/uL (0.0-0.2); BASO % 0.8 % (0.0-2.0); EOS # 0.2 K/uL (0.0-0.7); EOS % 1.3 % (0.0-4.0); HEMOGLOBIN 12.5 g/dL (12.0-18.0); LYMPH # 1.1 K/uL (1.0-4.3); LYMPH % 8.5 % (20.0-40.0); MEAN CELL VOLUME 91.4 fL (80.0-94.0); MEAN CORPUSCULAR HGB CONC 32.8 g/dL (33.0-37.0); MEAN PLATELET VOLUME 8.3 fL (7.2-11.7); MONO % 7.5 % (0.0-10.0); NEUT # 10.4 K/uL (1.8-7.0); NEUT % 81.9 % (50.0-75.0); PLATELET COUNT 466 K/uL (130-400); RBC 4.17 Mil/uL (4.40-5.90); RED CELL DISTRIBUTION WIDTH 13.2 % (11.5-14.5); WHITE BLOOD COUNT 12.7 K/uL (4.8-10.8)
[2017-11-01 08:06] LABS: INR 1.1
[2017-11-01] MEDS: (Novolog) Insulin Aspart, Recombinant 100 u/ml 10 ml vial SC SCH ×4 (08:06→21:59)
--- NOTE | 2017-11-01 08:21 | CP.PCM.PN ---
Subjective - Date & Time of Evaluation Date of Evaluation: 11/01/17 Time of Evaluation: 08:20 - Subjective Subjective: Progress Note for Dr. Tram Jeter's service Pt seen and examined at bedside. He denies any acute events overnight. He states that he is passing urine well. He is tolerating PO intake. He denies current dysuria, urinary frequency, chest pain, headaches, palpitations, nausea , vomiting. Objective - Vital Signs/Intake and Output Vital Signs (last 24 hours): Temp Pulse Resp BP Pulse Ox 98.6 F 91 H 20 135/76 95 11/01/17 07:55 11/01/17 07:55 11/01/17 07:55 11/01/17 07:55 11/01/17 07:55 Intake and Output: 11/01/17 11/01/17 06:59 18:59 Intake Total 600 Output Total 650 Balance -50 - Medications Medications: Current Medications Gabapentin (Neurontin) 100 mg PO TID [facility] Last Admin: 10/31/17 17:28 Dose: 100 mg Meropenem 500 mg/ Sodium (Chloride) 100 mls @ 100 mls/hr IVPB Q12 [facility] Last Admin: 10/31/17 21:54 Dose: 100 mls/hr Insulin Aspart (Novolog) 0 unit SC ACHS [facility] PRN Reason: Protocol Last Admin: 11/01/17 08:06 Dose: Not Given Lactobacillus Acidophilus (Bacid Acidophilus) 1 cap PO BID [facility] Last Admin: 10/31/17 17:27 Dose: 1 cap Pantoprazole Sodium (Protonix Ec Tab) 40 mg PO DAILY [facility] Last Admin: 10/31/17 10:51 Dose: 40 mg Tamsulosin HCl (Flomax) 0.4 mg PO DAILY [facility] Last Admin: 10/31/17 10:51 Dose: 0.4 mg - Labs Labs: 11/01/17 07:41 10/30/17 07:13 PT 13.0 SECONDS (9.7-12.2) H 11/01/17 07:41 INR 1.1 11/01/17 07:41 APTT 29 SECONDS (21-34) 11/01/17 07:41 - Head Exam Head Exam: ATRAUMATIC, NORMOCEPHALIC - Eye Exam Eye Exam: EOMI, Normal appearance - ENT Exam ENT Exam: Mucous Membranes Moist - Respiratory Exam Respiratory Exam: Clear to Ausculation Bilateral, NORMAL BREATHING PATTERN - Cardiovascular Exam Cardiovascular Exam: REGULAR RHYTHM, +S1, +S2 - GI/Abdominal Exam GI & Abdominal Exam: Soft. absent: Tenderness - Neurological Exam Neurological Exam: Alert, Awake, Oriented x3 - Skin Skin Exam: Dry, Warm Assessment and Plan - Assessment and Plan (Free Text) Plan: Obstructive uropathy Hx of BPH Initial suspected UTI based on Positive UA findings. Initial UCx 10/23 positive for E. Coli UCx 10/28 NGTD Urology Consult placed to Dr. Gloria Sterling- follow up recommendations Patient to have cystoscopy scheduled for Tuesday, November 01, 2016 testicular u/s- L epididimitis; b/l hydrocele CT abdomen/pelvis- no hydronephrosis/nephrolithiasis; moderate BPH Meropenum 500mg q12hrs Flomax 0.4mg PO daily Hyponatremia- improved 11/01- 131 Continue to monitor labs Diabetes mellitus Continue ISS A1c 9.9 Finger sticks ACHS HTN Normotensive Continue to monitor Neuropathic pain of both feet Start Gabapentin 100 mg PO TID Prophylactic measure Lovenox Protonix Acidophilus Patient will need home care nursing and physical therapy services. Following in-patient workup, patient to follow up in Tram Jeter's office outpatient. Case discussed with Dr. Jeter. All management per Dr. Jeter.
[2017-11-01 08:51] LABS: ALB/GLOB RATIO 0.9 (1.0-2.1); ALBUMIN 3.3 g/dL (3.5-5.0); CALCIUM 8.1 mg/dl (8.6-10.4); MAGNESIUM 1.7 mg/dL (1.6-2.3)
[2017-11-01] MEDS: Lactobacillus Acidophilus 500 MU Cap PO SCH ×2 (09:21→18:50)
[2017-11-01] MEDS: Pantoprazole 40 mg EC Tab PO SCH (09:22)
[2017-11-01 10:14] LABS: EOSINOPHIL 2 % (0-4); LYMPHOCYTE 7 % (20-40); MONOCYTE 4 % (0-10); NEUTROPHIL 87 % (50-75); TOTAL CELLS COUNTED 100
[2017-11-01 10:15] LABS: PLATELET ESTIMATE SLIGHTLY INCREASED (NORMAL)
[2017-11-01] MEDS: Meropenem 500 MG in Sodium Chloride 0.9% 100 ML IVPB SCH ×2 (10:29→22:02)
--- NOTE | 2017-11-01 14:34 | PCM.URO ---
Urology Progress Note - Objective Lab Studies: Reviewed (retention plans as before , possible cysto 11/03) Lab Results Last 24 Hours: Laboratory Results - last 24 hr 10/31/17 10/31/17 11/01/17 16:50 21:39 07:23 WBC RBC Hgb Hct MCV MCH MCHC RDW Plt Count MPV Neut % (Auto) Lymph % (Auto) Aiken % (Auto) Eos % (Auto) Baso % (Auto) Neut # Lymph # Aiken # Eos # Baso # Neutrophils % (Manual) Lymphocytes % (Manual) Monocytes % (Manual) Eosinophils % (Manual) Platelet Estimate RBC Morphology PT INR APTT Sodium Potassium Chloride Carbon Dioxide Anion Gap BUN Creatinine Est GFR ( Amer) Est GFR (Non-Af Amer) POC Glucose (mg/dL) 140 H 133 H 110 Random Glucose Calcium Phosphorus Magnesium Total Bilirubin AST ALT Alkaline Phosphatase Total Protein Albumin Globulin Albumin/Globulin Ratio 11/01/17 11/01/17 11/01/17 07:41 07:41 07:41 WBC 12.7 H RBC 4.17 L Hgb 12.5 Hct 38.1 MCV 91.4 MCH 30.0 MCHC 32.8 L RDW 13.2 Plt Count 466 H MPV 8.3 Neut % (Auto) 81.9 H Lymph % (Auto) 8.5 L Aiken % (Auto) 7.5 Eos % (Auto) 1.3 Baso % (Auto) 0.8 Neut # 10.4 H Lymph # 1.1 Aiken # 1.0 H Eos # 0.2 Baso # 0.1 Neutrophils % (Manual) 87 H Lymphocytes % (Manual) 7 L Monocytes % (Manual) 4 Eosinophils % (Manual) 2 Platelet Estimate Slightly increased H RBC Morphology Normal PT 13.0 H INR 1.1 APTT 29 Sodium 131 L Potassium 4.6 Chloride 98 Carbon Dioxide 26 Anion Gap 11 BUN 24 H Creatinine 1.7 H Est GFR ( Amer) 48 Est GFR (Non-Af Amer) 39 POC Glucose (mg/dL) Random Glucose 115 H Calcium 8.1 L Phosphorus 3.4 Magnesium 1.7 Total Bilirubin 0.5 AST 27 ALT 41 Alkaline Phosphatase 92 Total Protein 7.0 Albumin 3.3 L Globulin 3.7 Albumin/Globulin Ratio 0.9 L 11/01/17 11:29 WBC RBC Hgb Hct MCV MCH MCHC RDW Plt Count MPV Neut % (Auto) Lymph % (Auto) Aiken % (Auto) Eos % (Auto) Baso % (Auto) Neut # Lymph # Aiken # Eos # Baso # Neutrophils % (Manual) Lymphocytes % (Manual) Monocytes % (Manual) Eosinophils % (Manual) Platelet Estimate RBC Morphology PT INR APTT Sodium Potassium Chloride Carbon Dioxide Anion Gap BUN Creatinine Est GFR ( Amer) Est GFR (Non-Af Amer) POC Glucose (mg/dL) 114 H Random Glucose Calcium Phosphorus Magnesium Total Bilirubin AST ALT Alkaline Phosphatase Total Protein Albumin Globulin Albumin/Globulin Ratio Intake & Output: Intake & Output 10/31/17 11/01/17 11/01/17 18:59 06:59 18:59 Intake Total 600 600 Output Total 650 Balance 600 -50 Intake: Intake, IV Amount 100 100 Right Antecubital 100 100 Oral 500 500 Output: Urine 650 Urethral (Ghosh) 650 Other: # Voids Urethral (Ghosh) 3 3 # Bowel Movements 1 0 Vital Signs: Vital Signs - 24 hr 10/31/17 11/01/17 11/01/17 15:15 00:00 05:30 Temperature 98.8 F 98.6 F 99.3 F Pulse Rate 107 H 109 H Respiratory 20 20 Rate Blood Pressure 153/82 H 110/59 L O2 Sat by Pulse 99 94 L Oximetry 11/01/17 11/01/17 07:55 14:08 Temperature 98.6 F Pulse Rate 91 H 91 H Respiratory 20 Rate Blood Pressure 135/76 135/76 O2 Sat by Pulse 95 95 Oximetry
--- NOTE | 2017-11-01 18:37 | CP.PCM.PN ---
Subjective - Date & Time of Evaluation Date of Evaluation: 11/01/17 Time of Evaluation: 07:00 - Subjective Subjective: clinically same Objective - Vital Signs/Intake and Output Vital Signs (last 24 hours): Temp Pulse Resp BP Pulse Ox 98.2 F 97 H 20 138/73 95 11/01/17 15:00 11/01/17 15:00 11/01/17 15:00 11/01/17 15:00 11/01/17 15:00 Intake and Output: 11/01/17 11/01/17 06:59 18:59 Intake Total 600 100 Output Total 650 Balance -50 100 - Medications Medications: Current Medications Gabapentin (Neurontin) 100 mg PO TID [facility] Last Admin: 11/01/17 14:28 Dose: 100 mg Meropenem 500 mg/ Sodium (Chloride) 100 mls @ 100 mls/hr IVPB Q12 [facility] Last Admin: 11/01/17 10:29 Dose: 100 mls/hr Insulin Aspart (Novolog) 0 unit SC ACHS [facility] PRN Reason: Protocol Last Admin: 11/01/17 12:23 Dose: Not Given Lactobacillus Acidophilus (Bacid Acidophilus) 1 cap PO BID [facility] Last Admin: 11/01/17 09:21 Dose: Not Given Pantoprazole Sodium (Protonix Ec Tab) 40 mg PO DAILY [facility] Last Admin: 11/01/17 09:22 Dose: Not Given Tamsulosin HCl (Flomax) 0.4 mg PO DAILY [facility] Last Admin: 11/01/17 09:21 Dose: Not Given - Labs Labs: 11/01/17 07:41 11/01/17 07:41 PT 13.0 SECONDS (9.7-12.2) H 11/01/17 07:41 INR 1.1 11/01/17 07:41 APTT 29 SECONDS (21-34) 11/01/17 07:41
[2017-11-02 07:38] LABS: BASO # 0.1 K/uL (0.0-0.2); EOS # 0.2 K/uL (0.0-0.7); EOS % 1.9 % (0.0-4.0); HEMOGLOBIN 12.8 g/dL (12.0-18.0); LYMPH # 1.6 K/uL (1.0-4.3); LYMPH % 13.7 % (20.0-40.0); MEAN CELL VOLUME 91.8 fL (80.0-94.0); MEAN CORPUSCULAR HEMOGLOBIN 30.5 pg (27.0-31.0); MEAN CORPUSCULAR HGB CONC 33.2 g/dL (33.0-37.0); MONO # 1.1 K/uL (0.0-0.8); MONO % 9.2 % (0.0-10.0); NEUT # 8.9 K/uL (1.8-7.0); NEUT % 74.2 % (50.0-75.0); RBC 4.19 Mil/uL (4.40-5.90); RED CELL DISTRIBUTION WIDTH 13.2 % (11.5-14.5)
[2017-11-02] MEDS: (Novolog) Insulin Aspart, Recombinant 100 u/ml 10 ml vial SC SCH ×4 (08:25→21:47)
--- NOTE | 2017-11-02 08:25 | CP.PCM.PN ---
Subjective - Date & Time of Evaluation Date of Evaluation: 11/02/17 Time of Evaluation: 07:00 - Subjective Subjective: clinically same Objective - Vital Signs/Intake and Output Vital Signs (last 24 hours): Temp Pulse Resp BP Pulse Ox 98.3 F 96 H 20 137/82 96 11/02/17 07:58 11/02/17 07:58 11/02/17 07:58 11/02/17 07:58 11/02/17 07:58 Intake and Output: 11/02/17 11/02/17 06:59 18:59 Intake Total 460 180 Balance 460 180 - Medications Medications: Current Medications Gabapentin (Neurontin) 100 mg PO TID [facility] Last Admin: 11/01/17 18:50 Dose: 100 mg Insulin Aspart (Novolog) 0 unit SC ACHS [facility] PRN Reason: Protocol Last Admin: 11/01/17 21:59 Dose: Not Given Lactobacillus Acidophilus (Bacid Acidophilus) 1 cap PO BID [facility] Last Admin: 11/01/17 18:50 Dose: 1 cap Pantoprazole Sodium (Protonix Ec Tab) 40 mg PO DAILY [facility] Last Admin: 11/01/17 09:22 Dose: Not Given Tamsulosin HCl (Flomax) 0.4 mg PO DAILY [facility] Last Admin: 11/01/17 09:21 Dose: Not Given - Labs Labs: 11/02/17 07:23 11/01/17 07:41 PT 13.0 SECONDS (9.7-12.2) H 11/01/17 07:41 INR 1.1 11/01/17 07:41 APTT 29 SECONDS (21-34) 11/01/17 07:41
[2017-11-02 08:28] LABS: ALB/GLOB RATIO 0.9 (1.0-2.1); ALBUMIN 3.6 g/dL (3.5-5.0); CALCIUM 8.1 mg/dl (8.6-10.4)
[2017-11-02] MEDS: Lactobacillus Acidophilus 500 MU Cap PO SCH ×2 (09:52→17:29)
[2017-11-02] MEDS: Pantoprazole 40 mg EC Tab PO SCH (09:53)
--- NOTE | 2017-11-02 10:23 | CP.PCM.PN ---
Subjective - Date & Time of Evaluation Date of Evaluation: 11/02/17 Time of Evaluation: 10:19 - Subjective Subjective: Progress Note for Dr. Tram Jeter's service Pt seen and examined at bedside. He denies any acute events overnight. He states that he is passing urine well. He is tolerating PO intake but is currently NPO pending cystoscopy with Dr. Sterling today. He denies current dysuria, urinary frequency, chest pain, headaches, palpitations, nausea, vomiting. Objective - Vital Signs/Intake and Output Vital Signs (last 24 hours): Temp Pulse Resp BP Pulse Ox 98.3 F 96 H 20 137/82 96 11/02/17 07:58 11/02/17 07:58 11/02/17 07:58 11/02/17 07:58 11/02/17 07:58 Intake and Output: 11/02/17 11/02/17 06:59 18:59 Intake Total 460 180 Balance 460 180 - Medications Medications: Current Medications Gabapentin (Neurontin) 100 mg PO TID [facility] Last Admin: 11/02/17 09:53 Dose: Not Given Insulin Aspart (Novolog) 0 unit SC ACHS [facility] PRN Reason: Protocol Last Admin: 11/02/17 08:25 Dose: Not Given Lactobacillus Acidophilus (Bacid Acidophilus) 1 cap PO BID [facility] Last Admin: 11/02/17 09:52 Dose: Not Given Pantoprazole Sodium (Protonix Ec Tab) 40 mg PO DAILY [facility] Last Admin: 11/02/17 09:53 Dose: Not Given Tamsulosin HCl (Flomax) 0.4 mg PO DAILY [facility] Last Admin: 11/02/17 09:53 Dose: Not Given - Labs Labs: 11/02/17 07:23 11/02/17 07:23 PT 13.0 SECONDS (9.7-12.2) H 11/01/17 07:41 INR 1.1 11/01/17 07:41 APTT 29 SECONDS (21-34) 11/01/17 07:41 - Constitutional Appears: No Acute Distress - Head Exam Head Exam: ATRAUMATIC, NORMOCEPHALIC - Eye Exam Eye Exam: EOMI, Normal appearance - ENT Exam ENT Exam: Mucous Membranes Moist - Respiratory Exam Respiratory Exam: Clear to Ausculation Bilateral, NORMAL BREATHING PATTERN - Cardiovascular Exam Cardiovascular Exam: REGULAR RHYTHM, +S1, +S2 - Neurological Exam Neurological Exam: Alert, Awake, Oriented x3 - Skin Skin Exam: Dry, Warm Assessment and Plan - Assessment and Plan (Free Text) Plan: Obstructive uropathy Hx of BPH Initial suspected UTI based on Positive UA findings. Initial UCx 10/23 positive for E. Coli UCx 10/28 NGTD Urology Consult placed to Dr. Gloria Sterling- follow up recommendations Patient to have cystoscopy scheduled for Today- Wednesday, November 02, 2016 He is NPO today for procedure testicular u/s- L epididimitis; b/l hydrocele CT abdomen/pelvis- no hydronephrosis/nephrolithiasis; moderate BPH ID consulted- Dr. Oc cronin appreciated Meropenum 500mg q12hrs completed, no longer active Follow up further recommendations Flomax 0.4mg PO daily Hyponatremia- improved/resolved 11/02- 134 Continue to monitor labs Diabetes mellitus Continue ISS A1c 9.9 Finger sticks ACHS HTN Normotensive Continue to monitor Neuropathic pain of both feet Start Gabapentin 100 mg PO TID Prophylactic measure Lovenox Protonix Acidophilus Patient will need home care nursing and physical therapy services. Following in-patient workup, patient to follow up in Tram Jeter's office outpatient. Case discussed with Dr. Jeter. All management per Dr. Jeter.
[2017-11-02] MEDS ORDERED: cefTRIAXone 1 gm 1 GM/100 ML BAG IVPB ONE (14:24)
[2017-11-02] MEDS ORDERED: Propofol 10 mg/ml Inj (20 ML) ONE (14:26)
[2017-11-02] MEDS ORDERED: Midazolam 2 MG/2 ML VIAL ONE (14:26)
[2017-11-02] MEDS ORDERED: Lactated Ringer's 1,000 ML IV ONE (14:34)
[2017-11-02] MEDS ORDERED: Iohexol 240 (50 ml) ONE (14:39)
[2017-11-02] MEDS ORDERED: Lidocaine 2% Jelly (Uro-Jet) ONE (14:39)
--- NOTE | 2017-11-02 16:30 | RAD ---
PROCEDURE: HISTORY: As above COMPARISON: None TECHNIQUE: Total fluoroscopic time utilized during the procedure: 7.1 seconds. Total dose 0.24715 mGy cm squared FINDINGS: Submitted images from the current procedure: 8 Please refer to the physician's notes performing the procedure. No left or right hydronephrosis or left or right hydroureter. Each ureter is segmentally visualized. Right renal level contrast backflow IMPRESSION: Less than 1 hour fluoroscopic time utilized during performance of the procedure
[2017-11-02 16:58] VITALS: RESP 20
--- NOTE | 2017-11-02 17:44 | PN ---
DATE: 11/01/2017 Please see the previously dictated consultation notes and the daily previous progress notes. SUBJECTIVE: The patient is currently resting comfortably in his bed. His is at his bedside and they would like to discuss further plans. The patient is initially admitted (see the previously dictated notes) for urinary retention and urinary tract infection/actual pyelonephritis. The patient is being treated for such with antibiotics, being seen by Infectious Disease doctor; from urology standpoint as noted in previous notes. LABORATORY DATA: The patient has a PSA of 16. Cultures are noted. ID progress notes are noted. From urology standpoint, the patient now is being given a voiding trial and he reports that he is voiding better and urology has asked for followup regarding recommendations for further diagnostic studies. See below. PAST MEDICAL AND SURGICAL HISTORY: Otherwise as listed on the chart. MEDICATIONS: Essentially no changes. The patient is currently on tamsulosin, Flomax 0.4 mg p.o. daily. The patient also remains on the meropenem. The majority of the medications also remains unchanged. PHYSICAL EXAMINATION GENERAL: A well-nourished male, in no apparent distress. VITAL SIGNS: Within normal limits, included in the chart. ABDOMEN: The abdomen is relatively soft, difficult to evaluate, but it does not feel grossly distended. The remainder of the physical exam is otherwise unchanged. See the plans listed below. DIAGNOSES: Urinary retention, urosepsis, elevated prostate-specific antigen, and voiding dysfunction. ASSESSMENT AND PLAN: In summary, then in brief is a 76-year-old gentleman who is admitted to the hospital initially for urinary tract infection and urinary retention. Since his initial admission, the patient has been treated with antibiotics which he currently remains on. The length of treatment will be as per Infectious Disease and whether the patient remains in the hospital or is discharged home will be up to the medical attending, Dr. Tram Jeter, Infectious Disease. From a urology standpoint, I explained to the family that the patient needs further diagnostic studies, included in those diagnostic studies are the following, he needs a cystoscopy and perhaps even a urodynamic study (which cannot be done here); the cystoscopy can be. The patient also may require a prostate ultrasound and a prostate ultrasound-guided biopsy for the elevation in serum PSA. The timing of this would not be now during recovery from an episode of sepsis and retention. The patient is voiding well according to his report; it is difficult to evaluate his physical exam. So what we are going to order is a bladder ultrasound just to rule out any retention, but the patient says he is back to his baseline. So in brief, the options available I discussed with the patient and the with translation and after explaining to them options that are available and the patient speaks Spanish as well. After explaining options with the patient, they would prefer to have the next diagnostic test to be done here. We will therefore need to discuss the timing of such and see if we can make arrangements for tomorrow for 11/02/2017 (patient was scheduled for cystoscopy today, but inadvertently had eaten breakfast and this will cause a delay). So we are going to make arrangements as quickly we can either for 11/02/2017 or 11/03/2017 for a cystoscopic evaluation, but I explained in detail that the patient still will require followup. At least, if nothing else, we will have to followup serum PSA, perhaps his PSA will return to normal once the episode of urinary tract infection is resolved, but we will need to follow this closely. PLAN: So the plan for now is as follows: 1. We will order bladder scan to evaluate for retention. 2. We are going to arrange for cystoscopy either for 11/02/2017 or 11/03/2017 and then further plans will follow. 3. If the patient prefers and if the patient is cleared medically for discharge, we can arrange for an outpatient cystoscopic evaluation and an outpatient urodynamics and evaluation for the prostate and elevated PSA. Jose Sterling MD
[2017-11-02] MEDS: Meropenem 500 MG in Sodium Chloride 0.9% 100 ML IVPB SCH (21:07)
--- NOTE | 2017-11-03 02:20 | OP ---
PROCEDURE DATE: 11/02/2017 PREOPERATIVE DIAGNOSES: 1. Urinary retention. 2. Elevated prostate-specific antigen. 3. Urinary tract infection. 4. Pyelonephritis. 5. Voiding dysfunction. 6. Nocturia. 7. Decreased flow of stream. POSTOPERATIVE DIAGNOSES: 1. Urinary retention. 2. Elevated prostate-specific antigen. 3. Urinary tract infection. 4. Pyelonephritis. 5. Voiding dysfunction. 6. Nocturia. 7. Decreased flow of stream. PROCEDURE: Cystoscopy, bilateral retrograde pyelogram. COMPLICATIONS: There were no complications. DRAINS: No drains. ELMORE CATHETER: No Elmore. ESTIMATED BLOOD LOSS: Less than 10 mL. FINDINGS: The findings are significant. The anterior urethra is normal. No strictures are noted. He has an uncircumcised phallus. Foreskin is mobile. A rectal exam is performed. He has a 20-to 30-g prostate that is soft and smooth. I did not appreciate any major abnormalities. His scrotal examination is relatively within normal limits. No appreciable testicular masses or epididymal masses. Findings also included the following: Normal anterior urethra, no strictures, very large, visually occlusive, 3 to 4 cm, juicy prostate, the ureteral orifices are visualized. Patient has a moderate intravesical component and the left orifice was a little bit easier to see than the right orifice, but both orifices are easily seen and retrograde pyelograms are performed. "There is J-hooking," but this is difficult to evaluate with a retrograde pyelogram. The upper tracts were essentially normal. There is some tortuosity, interestingly, to the ureter. Remainder of the other findings, the bladder is moderately trabeculated, I do not appreciate any specific diverticulum. INDICATIONS: See the history and physical for further details and multiple progress notes. We discussed options. Patient came in with urinary tract infections, pyelonephritis. See the cultures. See the PSA of 16. See the progress notes from Infectious Disease. The patient is on meropenem. Patient is also now on tamsulosin. We had discussed options, location, timing, etc., and after discussing all those with patient, he is here now for the above procedure (I have emphasized with the patient, with translation with Polish, that afterwards he needs followup because of the PSA and voiding dysfunction). DESCRIPTION OF PROCEDURE: After obtaining informed consent, the patient was placed on the table. Routine monitors were placed. Timeout was called to confirm the patient and positioning. Patient was already on antibiotics as mentioned. Patient was placed in lithotomy position. Routine monitors were placed. Timeout was called to confirm the patient. We retracted the foreskin and it retracted easily. Under sterile technique, we introduced the cystoscope via the urethra under direct vision. The anterior urethra was normal, no strictures. visually occlusive about 3 to 4 cm with a large visually occlusive raphe (I do want to mention that it would be a gland that if necessary would be able to be done with a TURP and/or with a GreenLight Laser). There was a moderate intravesical component to the prostate (but I do want to mention I do not think it needs a suprapubic). The ureter was identified. The left is little more easily seen than the right. Both showed clear efflux. Bilateral retrograde pyelogram was performed. There was some tortuosity to the ureter, but relatively within normal limits. Normal upper tracts were noted. There was mild pyelovenous backflow on the right side. There were otherwise no major abnormalities. The bladder was moderately trabeculated. On inspection of the bladder neck and the prostate, there was a juicy prostate, but it was not specifically any particular blood vessel. At this point, the bladder was emptied. Cystoscope was removed. We did not cauterize and/or put a Elmore in. We will see if the patient can void (especially to his recollection, the Elmore catheter was disturbing him). The patient tolerated this without complications. ADDENDUM: We are going to monitor the patient. We are going to recommend outpatient followup, but very importantly, I have emphasized the importance that this is not the completion of treatment and that even if he is feeling well, he will need a followup in the Urology office. Did follow his serum PSA and that was noted to be elevated. We will discuss further plans with Dr. Tram Jeter and further plans will follow. Jose Sterling MD
[2017-11-03] MEDS: Meropenem 500 MG in Sodium Chloride 0.9% 100 ML IVPB SCH ×2 (05:31→14:17)
[2017-11-03 07:44] LABS: BASO # 0.1 K/uL (0.0-0.2); BASO % 0.9 % (0.0-2.0); EOS # 0.2 K/uL (0.0-0.7); EOS % 1.7 % (0.0-4.0); HEMOGLOBIN 12.1 g/dL (12.0-18.0); LYMPH # 1.5 K/uL (1.0-4.3); LYMPH % 13.2 % (20.0-40.0); MEAN CELL VOLUME 90.5 fL (80.0-94.0); MEAN CORPUSCULAR HEMOGLOBIN 30.5 pg (27.0-31.0); MEAN CORPUSCULAR HGB CONC 33.7 g/dL (33.0-37.0); MEAN PLATELET VOLUME 8.2 fL (7.2-11.7); MONO # 1.1 K/uL (0.0-0.8); MONO % 9.9 % (0.0-10.0); NEUT # 8.3 K/uL (1.8-7.0); NEUT % 74.3 % (50.0-75.0); RBC 3.96 Mil/uL (4.40-5.90); RED CELL DISTRIBUTION WIDTH 12.9 % (11.5-14.5); WHITE BLOOD COUNT 11.1 K/uL (4.8-10.8)
[2017-11-03] MEDS: (Novolog) Insulin Aspart, Recombinant 100 u/ml 10 ml vial SC SCH (08:00)
--- NOTE | 2017-11-03 08:03 | CP.PCM.PN ---
Subjective - Date & Time of Evaluation Date of Evaluation: 11/03/17 Time of Evaluation: 05:00 - Subjective Subjective: clinically same Objective - Vital Signs/Intake and Output Vital Signs (last 24 hours): Temp Pulse Resp BP Pulse Ox 98.5 F 88 20 121/74 97 11/03/17 00:00 11/03/17 00:00 11/03/17 00:00 11/03/17 00:00 11/03/17 00:00 Intake and Output: 11/03/17 11/03/17 06:59 18:59 Intake Total 840 Balance 840 - Medications Medications: Current Medications Gabapentin (Neurontin) 100 mg PO TID [facility] Last Admin: 11/02/17 17:29 Dose: 100 mg Glimepiride (Amaryl) 4 mg PO BID [facility] Last Admin: 11/02/17 17:29 Dose: 4 mg Meropenem 500 mg/ Sodium (Chloride) 100 mls @ 100 mls/hr IVPB Q8 [facility] Last Admin: 11/03/17 05:31 Dose: 100 mls/hr Insulin Aspart (Novolog) 0 unit SC ACHS [facility] PRN Reason: Protocol Last Admin: 11/02/17 21:47 Dose: Not Given Lactobacillus Acidophilus (Bacid Acidophilus) 1 cap PO BID [facility] Last Admin: 11/02/17 17:29 Dose: 1 cap Pantoprazole Sodium (Protonix Ec Tab) 40 mg PO DAILY [facility] Last Admin: 11/02/17 09:53 Dose: Not Given Tamsulosin HCl (Flomax) 0.4 mg PO DAILY [facility] Last Admin: 11/02/17 09:53 Dose: Not Given - Labs Labs: 11/03/17 07:33 11/02/17 07:23 PT 13.0 SECONDS (9.7-12.2) H 11/01/17 07:41 INR 1.1 11/01/17 07:41 APTT 29 SECONDS (21-34) 11/01/17 07:41
[2017-11-03 08:06] VITALS: BP 135/85; PULSE 89; TEMP 98.8; O2SAT 96
--- NOTE | 2017-11-03 08:44 | CP.PCM.PN ---
Subjective - Date & Time of Evaluation Date of Evaluation: 11/03/17 Time of Evaluation: 08:43 - Subjective Subjective: PT CLEARED FOR D/C HOME TODAY PER DR. Ember VARGAS. I DISCUSSED D/C PLAN WITH DR. EDWARDS LAST NIGHT AND PT IS CLEARED; MUST F/U WITHIN HIM IN THE OFFICE AND TO CONTINUE FLOMAX.I ALSO DISCUSSED PLAN WITH DR. LOZANO AND CLEARED; WILL TAKE KEFLEX 500MG QID X10 DAYS. I HAD A VERY LENGTHY DISCUSSION WITH THE PT AND HIS ABOUT ALL D/C INFORMATION (RX, F/U APPTS, DIETARY CHANGES HE IS NEW NIDDM). GLUCOMETER GIVEN TO PT AND TALAT GREEN TO SHOW HIM HOW IT IS TO BE USED. LIST OF DIABETIC FRIENDLY DIETARY RECOMMENDATIONS GIVEN TO PT AND . ALL CONCERNS AND QUESTIONS ADDRESSED. NO FURTHER ORDERS; SEE BELOW FOR D/C INFORMATION SENT WITH THE PT. -SEGUIMIENTO CON EL DR. Tram VARGAS EN LA OFICINA DENTRO DE 5-7 MENCHACA SI NO PUEDE ENCONTRAR A UN MDICO DE ATENCIN PRIMARIA ENTONCES --- LLAME A LA OFICINA PARA HACER TRAE HORA DE LA BRANDYN. -SEGUIMIENTO CON EL DR. EDWARDS (UROLOGA) EN LA OFICINA EN EL PLAZO DE 7-10 D DE DESCARGA --- LLAME A LA OFICINA PARA HACER TRAE HORA DE LA BRANDYN. IURHIHIS) -SEGUIMIENTO CON EL DR. FIGUEREDO (PODIATRA) EN LA OFICINA DENTRO DE 10-14 MENCHACA DE DESCARGA --- LLAME A LA OFICINA PARA HACER TRAE HORA DE LA BRANDYN. -COMUNQUESE CON BARRERA COMPAA DE SEGUROS PARA SOLICITAR INFORMACIN PARA LOS UROLOGISTAS Y EL MDICO DE ATENCIN PRIMARIA CERCA DE BARRERA HOGAR. -CONTINE MEDICAMENTOS RECIENTEMENTE PRESCRITOS EXACTAMENTE JOHNSON SE PRESCRIBE: -COMPRUEBE NIKITA NIVELES DE AZCAR CON EL GLUCMETRO CADA MAANA ANTES DEL DESAYUNO; ESCRIBA EN UN PAPEL EL NMERO Y CUANDO ESTHER A BARRERA NUEVO DOCTOR PUEDE TRAER ESTO CON USTED. PUEDEN AJUSTAR BARRERA MEDICINA DE AZCAR EN BASE A NIKITA N MEROS. 1) FLOMAX (PARA BARRERA PRSTATA) 0.4MG EN BOCA TRAE VEZ AL DA. 2) AMARYL (PARA BARRERA AZCAR, DIABETES) 4 MG POR BOCA DOS VECES AL DA --- ASEG RESE DE COMER ALIMENTOS MIENTRAS OSCAR ESTO. SHANNON ANTES DE COMIDAS. 3) GABAPENTIN (PARA NIKITA NERVIOS EN LOS PIES) 100 MG POR BOCA CARLOS VECES AL JASON. 4) KEFLEX (ANTIBITICO) 500 MG POR BOCA 4 VECES AL DA (A LAS 10 AM, 2 PM, 6PM Y 10 PM) WALLY UN TOTAL DE 10 MENCHACA. 5) BACID (VITAMINA PARA BARRERA ESTMAGO MIENTRAS EST EN LOS ANTIBITICOS) DOS VECES AL DA WALLY 10 MENCHACA MIENTRAS EST EN EL KEFLEX. -PARA MS PREOCUPACIONES O PREGUNTAS, CONTACTE CON EL DR. Tram VARGAS O DR. WILLIS TOBIAS. FOLLOW UP WITH DR. Tram VARGAS IN THE OFFICE WITHIN 5-7 DAYS IF YOU CANNOT FIND A PRIMARY CARE DOCTOR BY THEN---CALL THE OFFICE TO MAKE AN APPOINTMENT TIME. FOLLOW UP WITH DR. EDWARDS (UROLOGY) IN THE OFFICE WITHIN 7-10 DAYS OF DISCHARGE ---CALL THE OFFICE TO MAKE AN APPOINTMENT TIME ([phone]) FOLLOW UP WITH DR. FIGUEREDO (PODIATRY) IN THE OFFICE WITHIN 10-14 DAYS OF DISCHARGE ---CALL THE OFFICE TO MAKE AN APPOINTMENT TIME. CONTACT YOUR INSURANCE COMPANY TO REQUEST INFORMATION FOR UROLOGISTS AND PRIMARY CARE DOCTOR CLOSE TO YOUR HOME. CONTINUE NEWLY PRESCRIBED MEDICATIONS EXACTLY PRESCRIBED: 1) FLOMAX (FOR YOUR PROSTATE) 0.4MG BY MOUTH ONCE A DAY. 2) AMARYL (FOR YOUR SUGAR, DIABETES) 4 MG BY MOUTH TWICE A DAY---MAKE SURE YOU EAT FOOD WHILE TAKING THIS. TAKE BEFORE MEALS. 3) GABAPENTIN (FOR YOU NERVES IN YOUR FEET) 100 MG BY MOUTH THREE TIMES A DAY. 4) KEFLEX (ANTIBIOTIC) 500 MG BY MOUTH 4 TIMES A DAY (AT 10 AM, 2PM, 6PM, AND 10 PM) FOR A TOTAL OF 10 DAYS. 5) BACID (VITAMIN FOR YOUR STOMACH WHILE YOU ARE ON THE ANTIBIOTICS) TWICE A DAY FOR 10 DAYS WHILE YOU'RE ON THE KEFLEX. CHECK YOUR SUGAR LEVELS WITH THE GLUCOMETER EVERY MORNING BEFORE BREAKFAST; WRITE ON A PAPER THE NUMBER AND WHEN YOU SEE YOUR NEW DOCTOR YOU CAN BRING THIS WITH YOU. THEY MAY ADJUST YOUR SUGAR MEDICINE BASED ON YOUR NUMBERS. FOR FURTHER CONCERNS OR QUESTIONS, CONTACT DR. Tram VARGAS OR DR. EDWARDS'S OFFICE. Objective - Vital Signs/Intake and Output Vital Signs (last 24 hours): Temp Pulse Resp BP Pulse Ox 98.8 F 89 20 135/85 96 11/03/17 08:04 11/03/17 08:04 11/03/17 08:04 11/03/17 08:04 11/03/17 08:04 Intake and Output: 11/03/17 11/03/17 06:59 18:59 Intake Total 840 Balance 840 - Medications Medications: Current Medications Gabapentin (Neurontin) 100 mg PO TID [facility] Last Admin: 11/02/17 17:29 Dose: 100 mg Glimepiride (Amaryl) 4 mg PO BID [facility] Last Admin: 11/02/17 17:29 Dose: 4 mg Meropenem 500 mg/ Sodium (Chloride) 100 mls @ 100 mls/hr IVPB Q8 [facility] Last Admin: 11/03/17 05:31 Dose: 100 mls/hr Insulin Aspart (Novolog) 0 unit SC ACHS [facility] PRN Reason: Protocol Last Admin: 11/02/17 21:47 Dose: Not Given Lactobacillus Acidophilus (Bacid Acidophilus) 1 cap PO BID [facility] Last Admin: 11/02/17 17:29 Dose: 1 cap Pantoprazole Sodium (Protonix Ec Tab) 40 mg PO DAILY [facility] Last Admin: 11/02/17 09:53 Dose: Not Given Tamsulosin HCl (Flomax) 0.4 mg PO DAILY [facility] Last Admin: 11/02/17 09:53 Dose: Not Given - Labs Labs: 11/03/17 07:33 11/02/17 07:23 PT 13.0 SECONDS (9.7-12.2) H 11/01/17 07:41 INR 1.1 11/01/17 07:41 APTT 29 SECONDS (21-34) 11/01/17 07:41
[2017-11-03 09:16] LABS: ALB/GLOB RATIO 0.9 (1.0-2.1); ALBUMIN 3.3 g/dL (3.5-5.0)
[2017-11-03] MEDS: Lactobacillus Acidophilus 500 MU Cap PO SCH (09:23)
[2017-11-03] MEDS: Pantoprazole 40 mg EC Tab PO SCH (09:24)
--- NOTE | 2017-11-03 22:57 | PCM.URO ---
Urology Progress Note - General General: No Complaints, Tolerating Diet - Subjective Abdominal Pain: No Flank Pain: No Nausea: No Vomiting: No Voiding Well: Yes (good stream) Dysuria: Yes (now resolved) Hematuria: No Frequency: Yes Good Stream: Yes Stone Passed: No Dsypnea: No Chest Pain: No Fever & Chills: No - Objective Lab Results Last 24 Hours: Laboratory Results - last 24 hr 11/02/17 11/02/17 11/03/17 16:20 21:25 07:21 WBC RBC Hgb Hct MCV MCH MCHC RDW Plt Count MPV Neut % (Auto) Lymph % (Auto) [place] % (Auto) Eos % (Auto) Baso % (Auto) Neut # Lymph # [place] # Eos # Baso # Sodium Potassium Chloride Carbon Dioxide Anion Gap BUN Creatinine Est GFR ( Amer) Est GFR (Non-Af Amer) POC Glucose (mg/dL) 129 H 124 H 77 Random Glucose Calcium Total Bilirubin AST ALT Alkaline Phosphatase Total Protein Albumin Globulin Albumin/Globulin Ratio 11/03/17 11/03/17 11/03/17 07:33 07:33 11:03 WBC 11.1 H RBC 3.96 L Hgb 12.1 Hct 35.9 MCV 90.5 MCH 30.5 MCHC 33.7 RDW 12.9 Plt Count 444 H MPV 8.2 Neut % (Auto) 74.3 Lymph % (Auto) 13.2 L [place] % (Auto) 9.9 Eos % (Auto) 1.7 Baso % (Auto) 0.9 Neut # 8.3 H Lymph # 1.5 [place] # 1.1 H Eos # 0.2 Baso # 0.1 Sodium 134 Potassium 4.2 Chloride 102 Carbon Dioxide 27 Anion Gap 10 BUN 26 H Creatinine 1.5 Est GFR ( Amer) 55 Est GFR (Non-Af Amer) 46 POC Glucose (mg/dL) 96 Random Glucose 87 Calcium 8.0 L Total Bilirubin 0.3 AST 25 ALT 36 Alkaline Phosphatase 94 Total Protein 7.1 Albumin 3.3 L Globulin 3.8 Albumin/Globulin Ratio 0.9 L Intake & Output: Intake & Output 11/03/17 11/03/17 11/04/17 06:59 18:59 06:59 Intake Total 840 800 Balance 840 800 Intake: Intake, IV Amount 200 Right Antecubital 200 Oral 640 800 Other: # Voids Urethral (Ghosh) 3 4 # Bowel Movements 0 0 Vital Signs: Vital Signs - 24 hr 11/03/17 11/03/17 00:00 08:04 Temperature 98.5 F 98.8 F Pulse Rate 88 89 Respiratory 20 20 Rate Blood Pressure 121/74 135/85 O2 Sat by Pulse 97 96 Oximetry - Physical Exam Abdominal Exam: Soft, Non-Tender, Non-Distended Back: No CVA Tenderness - Plan Additional Information: IMP: stable p cysto. Hx of UTI. Enlarged prostate. Elevated PSA. Improved re uti and retention. Rec/plan: continue tamsulosis,. antibiotic rx. pt is scheduled for discharge today. outpt f/u. pt will need repeat PSA. Poss need for prostate bx. - Date & Time of Note Date: 11/03/17 Time: 12:05
== END 2017-11-03 15:30 | disposition home or self-care (01) | DRG 872 ==
LOC: C.ER 11:22 → C.9E 15:19 → C.3T 15:19
PROVIDERS: ADMIT Internal Medicine Nephrology; ATTEND Internal Medicine Nephrology
PROC: BT14ZZZ Fluoroscopy of Kidneys, Ureters and Bladder (ICD-10-PCS; principal; 2017-11-01)
DX: A41.9 Sepsis, unspecified organism (principal); E11.65 Type 2 diabetes mellitus with hyperglycemia; N19 Unspecified kidney failure; N39.0 Urinary tract infection, site not specified; N12 Tubulo-interstitial nephritis, not specified as acute or chronic; N13.8 Other obstructive and reflux uropathy; B96.20 Unspecified Escherichia coli [E. coli] as the cause of diseases classified elsewhere; I10 Essential (primary) hypertension; N40.1 Benign prostatic hyperplasia with lower urinary tract symptoms; N45.1 Epididymitis; R33.9 Retention of urine, unspecified